=== PATIENT | female | born 1955 | race Caucasian/White ===

== ENCOUNTER 2017-01-16 22:29 | Observation (INO) | payer OTHER ==
[~2017-01-16] VITALS: Ht 165.1 cm; Wt 74.5 kg
[~2017-01-16 22:29] MED LIST: ALBU6.7H INH; ALPR0.5T99 PO; ASPI325T PO; DOXY100T PO; LEXA10TA PO; LISI-357 PO; LOVA10TA PO; OMEG1CAP53 PO; RANI150 PO; TESS200C PO
[2017-01-16] MEDS ORDERED: SODIUM CHLORIDE 0.9% FLUSH 5 ML FLUSH IVF PRN (22:45)
[2017-01-16] MEDS ORDERED: CYCL1TAB29 PO (23:12)
[2017-01-16] MEDS ORDERED: FENO200C PO (23:12)
[2017-01-16] MEDS ORDERED: BUTA1CAP PO (23:12)
[2017-01-16] MEDS ORDERED: KETO2CRE TOPICAL (23:12)
[2017-01-16] MEDS ORDERED: TRAM50TA PO (23:12)
[2017-01-16] MEDS ORDERED: CARV3.12 PO (23:12)
[2017-01-16] MEDS ORDERED: ONDA8TAB8 SL (23:12)
[2017-01-16] MEDS ORDERED: FLUT1INH INH (23:12)
[2017-01-16] MEDS ORDERED: ASPI325T PO (23:12)
[2017-01-16] MEDS ORDERED: ESCI10TA PO (23:12)
[2017-01-16] MEDS ORDERED: DIAZ5TAB PO (23:12)
[2017-01-16 23:31] VITALS: BP 188/81; PULSE 63; RESP 16; TEMP 97.8; O2SAT 98
[2017-01-16 23:32] LABS: AUTOMATED NEUTROPHIL # 4.2 TH/MM3 (1.8-7.7); BASOPHIL # 0.1 TH/MM3 (0-0.2); BASOPHIL % 0.7 % (0.0-2.0); CHLORIDE 107 MEQ/L (98-107); EOSINOPHIL # 0.2 TH/MM3 (0-0.4); EOSINOPHIL % 2.2 % (0.0-4.0); HEMATOCRIT 48.1 % (35.0-46.0); HEMO FLAGS DIFF FINAL; LYMPH % 40.7 % (9.0-44.0); LYMPHOCYTE # 3.4 TH/MM3 (1.0-4.8); MEAN CELL VOLUME 88.2 FL (80.0-100.0); MEAN CORPUSCULAR HEMOGLOBIN 29.6 PG (27.0-34.0); MEAN CORPUSCULAR HGB CONC 33.5 % (32.0-36.0); MONO % 5.3 % (0.0-8.0); NEUT % 51.1 % (16.0-70.0); PLATELET COUNT 248 TH/MM3 (150-450); POTASSIUM 3.9 MEQ/L (3.5-5.1); RED BLOOD COUNT 5.45 MIL/MM3 (4.00-5.30); RED CELL DISTRIBUTION WIDTH 13.3 % (11.6-17.2); SODIUM (NA) 143 MEQ/L (136-145); WHITE BLOOD COUNT 8.3 TH/MM3 (4.0-11.0)
[2017-01-16 23:36] LABS: ANION GAP 9 MEQ/L (5-15); BICARBONATE 26.7 MEQ/L (21.0-32.0); BLOOD UREA NITROGEN 12 MG/DL (7-18)
[2017-01-16 23:39] LABS: ALT (GPT) 27 U/L (10-53); AST (GOT) 25 U/L (15-37); GLOMERULAR FILTRATION RATE 66 ML/MIN (>89)
[2017-01-16 23:40] LABS: TOTAL BILIRUBIN ADULT 0.4 MG/DL (0.2-1.0)
[2017-01-16 23:41] LABS: ALKALINE PHOSPHATASE 57 U/L (45-117); CREATINE KINASE 314 U/L (26-192)
--- NOTE | 2017-01-16 23:43 | RADHPO ---
EXAM DATE/TIME: 01/16/2017 23:12 [facility] COMPARISON: No previous studies available for comparison. INDICATIONS : Altered mental status. RADIATION DOSE: 60.26 CTDIvol (mGy) MEDICAL HISTORY : Hypertension. Myocardial infarction. SURGICAL HISTORY : Coronary artery stent. ENCOUNTER: Initial ACUITY: 1 day PAIN SCALE: 0/10 LOCATION: cranial TECHNIQUE: Multiple contiguous axial images were obtained of the head. Using automated exposure control and adj ustment of the mA and/or kV according to patient size, radiation dose was kept as low as reasonably a chievable to obtain optimal diagnostic quality images. FINDINGS: CEREBRUM: The ventricles are normal for age. No evidence of midline shift, mass lesion, hemorrhage or acute in farction. Physiologic calcification in the basal ganglia bilaterally. No extra-axial fluid collecti ons are seen. POSTERIOR FOSSA: The cerebellum and brainstem are intact. The 4th ventricle is midline. The cerebellopontine angle i s unremarkable. EXTRACRANIAL: The visualized portion of the orbits is intact. SKULL: The calvaria is intact. No evidence of skull fracture. CONCLUSION: Negative noncontrast CT brain. Randy Lee MD on January 16, 2017 at 23:33 Board Certified Radiologist. This report was verified electronically.
--- NOTE | 2017-01-16 23:52 | PD ---
HPI . Altered mental status Chief Complaint: Altered Mental Status Time Seen by Provider: 22:43 Travel History International Travel<30 days: No Contact w/Intl Traveler<30days: No Traveled to known affect area: No History of Present Illness HPI Patient is brought in by her daughter with a chief complaint of altered mental status. This reportedly started tonight. The daughter has just moved to the area. She is not able to arrive to us with much more history than this. PFSH Past Medical History Hx Anticoagulant Therapy: Yes (ASA) Anxiety: Yes Cardiac Catheterization: Yes Cardiovascular Problems: Yes Coronary Artery Disease: Yes Diabetes: No Diminished Hearing: No Gastrointestinal Disorders: Yes Genitourinary: No Headaches: No Hypertension: Yes Musculoskeletal: No Neurologic: No Reproductive: No Respiratory: Yes Immunizations Current: Yes Myocardial Infarction: Yes (2008) PNEUMOCCOCAL Vaccine (Year): 2007 Menopausal: Yes Past Surgical History Abdominal Surgery: Yes (cholecystectomy) Cholecystectomy: Yes Coronary Stent: Yes (X2 07/2008) Other Surgery: Yes Social History Alcohol Use: No Tobacco Use: Yes (2pk/day) Substance Use: No Allergies-Medications (Allergen,Severity, Reaction): Coded Allergies: Blue Dyes - Various (Verified Allergy, Severe, Edema, 01/16/17) Cat Dander (Verified Allergy, Severe, FACIAL SWELLING, 01/16/17) Dog Dander (Verified Allergy, Severe, FACIAL SWELLING, 01/16/17) Keflex (Verified Allergy, Severe, HIVES, 01/16/17) Reported Meds & Prescriptions Reported Meds & Active Scripts Active Reported Aspirin 325 Mg Tab 325 Mg PO DAILY Ketoconazole Topical 2% Cream 1 Applic TOPICAL DAILY Breo Ellipta Inh (Fluticasone/Vilanterol) 100-25 Mcg/Act Inh 1 Puff INH DAILY Use daily at the same time. Fenofibrate Micronized 200 Mg Cap 200 Mg PO DAILY Fioricet (Efxeonkzfw-Rvinrnbcqlsmr-Fgiixlcm) 50-300-40 Mg Cap 1 Cap PO Q4H PRN Escitalopram (Escitalopram Oxalate) 10 Mg Tab 10 Mg PO DAILY Ondansetron Odt 8 Mg Tab 8 Mg SL Q12H PRN Flexeril (Cyclobenzaprine HCl) 10 Mg Tab 10 Mg PO TID Carvedilol 3.125 Mg Tab 3.125 Mg PO BID Diazepam 5 Mg Tab 5 Mg PO TID PRN Tramadol (Tramadol HCl) 50 Mg Tab 50 Mg PO Q6H PRN Review of Systems ROS Limitations: Altered Mental Status General / Constitutional: No: Fever, Chills HENT: Positive: Headaches Cardiovascular: No: Chest Pain or Discomfort Respiratory: No: Shortness of Breath Gastrointestinal: No: Nausea, Vomiting Neurologic: Positive: Headache, Change in Mentation, No: Focal Abnormalities, Slurred Speech, Paresthesia, Incontinence, Seizures Physical Exam Narrative GENERAL: Patient is confused and frightened appearing. SKIN: Warm and dry. HEAD: Atraumatic. Normocephalic. EYES: Pupils equal and round. Extraocular movements are intact. ENT: No nasal bleeding or discharge. Mucous membranes pink and moist. NECK: Trachea midline. Her neck is supple. CARDIOVASCULAR: Regular rate and rhythm. Heart sounds are normal. RESPIRATORY: No accessory muscle use. Lungs are clear with full air movement throughout. GASTROINTESTINAL: Abdomen soft, non-tender, nondistended. MUSCULOSKELETAL: No obvious deformities. No edema. NEUROLOGICAL: Awake and alert. She is able to tell me her name. She is unable to state her birthday, where she is, what day it is, who the president is. She moves all 4 extremities equally. She has good replenishment specialist strengths. No ataxia noted on qmztri-fycn-[id number] exam. PSYCHIATRIC: Unable to evaluate. Data Data Last Documented VS Vital Signs Date Time Temp Pulse Resp B/P Pulse Ox O2 Delivery O2 Flow Rate FiO2 01/17/17 03:48 64 18 96 Room Air 01/17/17 03:28 169/75 01/16/17 23:31 97.8 Orders Electrocardiogram (01/16/17 22:43) Ammonia (01/16/17 22:43) Complete Blood Count With Diff (01/16/17 22:43) Comprehensive Metabolic Panel (01/16/17 22:43) Creatine Kinase (Cpk) (01/16/17 22:43) Troponin I (01/16/17 22:43) Urinalysis - C+S If Indicated (01/16/17 22:43) Ct Brain W/O Iv Contrast(Rout) (01/16/17 22:43) Blood Glucose (01/16/17 22:43) Ecg Monitoring (01/16/17 22:43) Iv Access Insert/Monitor (01/16/17 22:43) Oximetry (01/16/17 22:43) Sodium Chloride 0.9% Flush (Ns Flush) (01/16/17 22:45) Drug Screen, Random Urine (01/16/17 22:43) Alcohol (Ethanol) (01/16/17 22:43) Cath For Specimen (01/16/17 22:43) CKMB (01/16/17 23:09) CKMB% (01/16/17 23:09) Place In Observation (01/17/17 ) Vital Signs (Adult) Q4H (01/17/17 03:54) Activity Oob With Assistance (01/17/17 03:54) Diet Regular Basic (01/17/17 Breakfast) Sodium Chlor 0.9% 1000 Ml Inj (Ns 1000 M (01/17/17 03:54) Sodium Chloride 0.9% Flush (Ns Flush) (01/17/17 04:00) Sodium Chloride 0.9% Flush (Ns Flush) (01/17/17 09:00) Ondansetron Inj (Zofran Inj) (01/17/17 04:00) Bisacodyl Supp (Dulcolax Supp) (01/17/17 04:00) Comprehensive Metabolic Panel (01/18/17 06:00) Complete Blood Count With Diff (01/18/17 06:00) Pt Request For Service (01/17/17 03:54) Case Management Consult (01/17/17 03:54) Scd Bilateral/Knee High JANELLE.BID (01/17/17 03:54) Ruperto Bilateral/Knee High JANELLE.QSHIFT (01/17/17 03:54) Acetaminophen (Tylenol) (01/17/17 04:00) Admit Order (Ed Use Only) (01/17/17 03:55) Labs Laboratory Tests Test 01/16/17 01/16/17 01/17/17 23:09 23:40 00:11 White Blood Count 8.3 TH/MM3 Red Blood Count 5.45 MIL/MM3 Hemoglobin 16.1 GM/DL Hematocrit 48.1 % Mean Corpuscular Volume 88.2 FL Mean Corpuscular Hemoglobin 29.6 PG Mean Corpuscular Hemoglobin 33.5 % Concent Red Cell Distribution Width 13.3 % Platelet Count 248 TH/MM3 Mean Platelet Volume 7.7 FL Neutrophils (%) (Auto) 51.1 % Lymphocytes (%) (Auto) 40.7 % Monocytes (%) (Auto) 5.3 % Eosinophils (%) (Auto) 2.2 % Basophils (%) (Auto) 0.7 % Neutrophils # (Auto) 4.2 TH/MM3 Lymphocytes # (Auto) 3.4 TH/MM3 Monocytes # (Auto) 0.4 TH/MM3 Eosinophils # (Auto) 0.2 TH/MM3 Basophils # (Auto) 0.1 TH/MM3 CBC Comment DIFF FINAL Differential Comment Sodium Level 143 MEQ/L Potassium Level 3.9 MEQ/L Chloride Level 107 MEQ/L Carbon Dioxide Level 26.7 MEQ/L Anion Gap 9 MEQ/L Blood Urea Nitrogen 12 MG/DL Creatinine 0.87 MG/DL Estimat Glomerular Filtration 66 ML/MIN Rate Random Glucose 106 MG/DL Calcium Level 8.7 MG/DL Total Bilirubin 0.4 MG/DL Aspartate Amino Transf 25 U/L (AST/SGOT) Alanine Aminotransferase 27 U/L (ALT/SGPT) Alkaline Phosphatase 57 U/L Total Creatine Kinase 314 U/L Creatine Kinase MB 2.8 NG/ML Creatine Kinase MB % 0.9 % Troponin I LESS THAN 0.02 NG/ML Total Protein 6.7 GM/DL Albumin 3.6 GM/DL Ethyl Alcohol Level LESS THAN 3 MG/DL Ammonia 17 MCMOL/L Urine Color STRAW Urine Turbidity CLEAR Urine pH 7.0 Urine Specific [place] 1.009 Urine Protein NEG mg/dL Urine Glucose (UA) NEG mg/dL Urine Ketones NEG mg/dL Urine Occult Blood NEG Urine Nitrite NEG Urine Bilirubin NEG Urine Leukocyte Esterase NEG Urine WBC 0-2 /hpf Urine Squamous Epithelial 0-5 /hpf Cells Microscopic Urinalysis Comment CULT NOT INDICATED Urine Opiates Screen NEG Urine Barbiturates Screen NEG Urine Amphetamines Screen NEG Urine Benzodiazepines Screen POS Urine Cocaine Screen NEG Urine Cannabinoids Screen NEG MDM Medical Decision Making Medical Screen Exam Complete: Yes Emergency Medical Condition: Yes Medical Record Reviewed: Yes (unfortunately, the patient has not been here in the recent past. She does have a history of hypertension and previous OK status post stent placement. She is a smoker.) Interpretation(s) EKG shows a sinus rhythm with no ST segment elevation or depression. Differential Diagnosis Differential diagnosis of altered mental status includes but is not limited to infection, electrolyte abnormality, neurological event, intoxication Narrative Course Patient presents to us for altered mental status. We are not able to give a very good history from the patient and family. CBC & BMP Diagram 01/16/17 23:09 Cardiac enzymes are negative. Liver function studies are normal. Ammonia level is 17. Drug screen is positive for benzodiazepines. Alcohol level is negative. UA is clean. Last Impressions Head CT 01/16/17 2243 Signed Impressions: Service Date/Time: Monday, January 16, 2017 23:12 - CONCLUSION: Negative noncontrast CT brain. Randy Lee MD Patient has been observed in the emergency department for a period of time. Her mental status has not cleared at all. She is able to tell us her name but that is all. She cannot tell us what sort of place this is. She does not know the day. She does not know her birthday. Critical Care Narrative Aggregate critical care time was 45 minutes. Time to perform other separately billable procedures was not included in the critical care time. My time did not include minutes spent treating any other patients simultaneously or on activities that did not directly contribute to the patient's treatment. The services I provided to this patient were to treat and/or prevent clinically significant deterioration due to altered mental status I provided critical care services requiring my management, as noted below: Chart data review, documentation time, medication orders and management, vital sign assessments/reviewing monitor data, ordering and reviewing lab tests, ordering and interpreting/reviewing x-rays and diagnostic studies, care of the patient and discussion of the patient with the admitting physicians Diagnosis Primary Impression: Altered mental status Qualified Code: R41.0 - Delirium Admitting Information Admitting Physician Requests: Admit Condition: Stable Neida Leos MD Jan 16, 2017 23:51
[2017-01-17] VITALS (13 sets, daily range): BP systolic 113–202; BP diastolic 52–88; PULSE 64–79; RESP 16–21; TEMP 97.8–99.7; O2SAT 95–98
[2017-01-17] LABS: CKMB 2.8 NG/ML (0.5-3.6)
[2017-01-17 00:39] LABS: BLOOD, URINE NEG (NEG); GLUCOSE,URINE NEG (NEG); KETONE, URINE NEG (NEG); NITRITE,URINE NEG (NEG)
[2017-01-17 00:47] LABS: AMPHETAMINE, URINE NEG (NEG); BARBITURATES, URINE NEG (NEG); COCAINE, URINE NEG (NEG)
[2017-01-17 01:03] LABS: URINE COLOR STRAW (YELLW/STRAW)
[2017-01-17 01:04] LABS: SQUAMOUS EPITHELIAL CELL URINE 0-5 /hpf (0-5); WBC, URINE 0-2 /hpf (0-5)
[2017-01-17 01:05] LABS: COMMENT (UR) CULT NOT INDICATED; CULTURE IF INDICATED CULT NOT INDICATED
[2017-01-17] MEDS ORDERED: BISACODYL 10 MG SUPP PR PRN (04:00)
[2017-01-17] MEDS ORDERED: SODIUM CHLORIDE 0.9% FLUSH 5 ML FLUSH FLUSH PRN (04:00)
[2017-01-17] MEDS ORDERED: ONDANSETRON HCL 4 MG/2 ML VIAL IVP PRN (04:00)
[2017-01-17] MEDS: SODIUM CHLOR 0.9% 1000 ML INJ 1,000 ML IV SCH ×2 (04:43→13:45)
[2017-01-17] MEDS: SODIUM CHLORIDE 0.9% FLUSH 5 ML FLUSH FLUSH SCH ×2 (08:52→21:00)
--- NOTE | 2017-01-17 10:15 | HHI.HP ---
HPI Service [facility] Hospitalists Primary Care Physician No Primary Care Physician Admission Diagnosis altered mental status Diagnoses: Chief Complaint: Altered mental status Travel History International Travel<30 Days: No Contact w/Intl Traveler <30 Da: No Traveled to Known Affected Are: No History of Present Illness This is a 61-year-old female with past medical history significant for coronary artery disease status post stent implant and COPD who presents to [facility] ED with altered mental status. Per ED staff, patient is less altered and is more aware of her surroundings, however she is still a very poor historian and unreliable with her responses. Her sister is at the bedside but was not present last night at the onset of patient's symptoms. Apparently, the patient was brought in by her granddaughter last night. Patient states that she began feeling poorly after taking her evening Coreg dose. When asked if the patient took any of her other medications, including Flexeril, diazepam and/ or tramadol she is unclear. She is alert and oriented to self, place and time. She informs me that she had cough and congestion due to pneumonia 2 weeks ago and was treated with antibiotics as an outpatient. She is dealing with a lot of stress at home and is not getting much sleep. In the ED, CT of the head is negative. She is hemodynamically stable. Her white count is normal. UA is unremarkable. Electrolytes are within normal limits. Her troponin is negative. Chest x-ray is unremarkable. At end of visit, patient stated that she is going home understanding that it would be AGAINST MEDICAL ADVICE but as she went to get up from the hospital she developed a sudden headache. Patient now agreeable to staying and complete her course of treatment. Review of Systems ROS Limitations: Altered Mental Status (able to answer some questions appropriately) Constitutional: DENIES: Fatigue, Fever, Chills Endocrine: DENIES: Polydipsia, Polyuria Eyes: DENIES: Blurred vision, Diplopia Ears, nose, mouth, throat: DENIES: Throat pain, Running Nose, Sinus Pain Respiratory: COMPLAINS OF: Cough (1-2 weeks ago, history of pneumonia, resolved ), Sputum production (1-2 weeks ago, resolved), DENIES: Hemoptysis, Shortness of breath Cardiovascular: DENIES: Chest pain, Palpitations, Syncope, Lower Extremity Edema Gastrointestinal: DENIES: Abdominal pain, Black stools, Bloody stools, Diarrhea , Nausea, Vomiting Genitourinary: DENIES: Hematuria, Dysuria Musculoskeletal: DENIES: Muscle aches, Joint Swelling, Back pain, Neck pain Integumentary: DENIES: Pruritus, Rash Hematologic/lymphatic: DENIES: Lymphadenopathy Immunologic/allergic: DENIES: Urticaria Neurologic: COMPLAINS OF: Speech Problems (some slurred speech 1 day), DENIES : Headache, Localized weakness, Paresthesias Psychiatric: DENIES: Confusion, Mood changes, Depression Past Family Social History Past Medical History COPD Coronary artery disease, previous NSTEMI 2007 Hypertension Anxiety Dyslipidemia Recent community-acquired pneumonia, treated successfully as outpatient Past Surgical History Cardiac stents, 2009 Cholecystectomy Reported Medications Aspirin 325 Mg Tab 325 Mg PO DAILY Ketoconazole Topical 2% Cream 1 Applic TOPICAL DAILY Breo Ellipta Inh (Fluticasone/Vilanterol) 100-25 Mcg/Act Inh 1 Puff INH DAILY Use daily at the same time. Fenofibrate Micronized 200 Mg Cap 200 Mg PO DAILY Fioricet (Wbwymopnki-Wuszlkwjgswzd-Giiziqge) 50-300-40 Mg Cap 1 Cap PO Q4H PRN Escitalopram (Escitalopram Oxalate) 10 Mg Tab 10 Mg PO DAILY Ondansetron Odt 8 Mg Tab 8 Mg SL Q12H PRN Flexeril (Cyclobenzaprine HCl) 10 Mg Tab 10 Mg PO TID Carvedilol 3.125 Mg Tab 3.125 Mg PO BID Diazepam 5 Mg Tab 5 Mg PO TID PRN Tramadol (Tramadol HCl) 50 Mg Tab 50 Mg PO Q6H PRN Allergies: Coded Allergies: Blue Dyes - Various (Verified Allergy, Severe, Edema, 01/16/17) Cat Dander (Verified Allergy, Severe, FACIAL SWELLING, 01/16/17) Dog Dander (Verified Allergy, Severe, FACIAL SWELLING, 01/16/17) Keflex (Verified Allergy, Severe, HIVES, 01/16/17) Active Ordered Medications Current Medications Medications (Trade) Dose Ordered Sig/Lo Route Start Time Stop Time Status Last Admin IV Flush 2 ml 2 ml UNSCH PRN IVF 01/16/17 22:45 (NS 1000 ml Inj) 1,000 ml @ 100 mls/hr Q10H IV 01/17/17 03:54 01/17/17 04:43 (NS Flush) 2 ml UNSCH PRN FLUSH 01/17/17 04:00 (NS Flush) 2 ml BID FLUSH 01/17/17 09:00 (Zofran Inj) 4 mg Q6H PRN IVP 01/17/17 04:00 (Dulcolax Supp) 10 mg DAILY PRN WI 01/17/17 04:00 (Tylenol) 650 mg Q6H PRN PO 01/17/17 04:00 Family History She denies any significant family medical history Social History Patient admits to heavy tobacco use of 2-3 packs per day and has been smoking since her early 20s Occasional alcohol use Denies any illicit drug use She is Lives with her and granddaughter Physical Exam Vital Signs Vital Signs Date Time Temp Pulse Resp B/P Pulse Ox O2 Delivery O2 Flow Rate FiO2 01/17/17 09:14 71 18 156/72 97 Room Air 01/17/17 06:11 71 16 95 Room Air 01/17/17 06:09 72 18 165/71 95 Room Air 01/17/17 04:46 79 20 202/74 97 Room Air 01/17/17 03:48 64 18 96 Room Air 01/17/17 03:28 64 18 169/75 96 Room Air 01/17/17 01:47 18 96 Room Air 01/17/17 01:28 76 18 152/66 97 Room Air 01/17/17 00:28 66 18 191/88 97 Room Air 01/16/17 23:47 63 16 98 Room Air 01/16/17 23:31 97.8 63 16 188/81 98 Physical Exam GENERAL: This is a well-nourished, well-developed patient, in no apparent distress. She is sleeping but easily arousable. SKIN: No rashes, ecchymoses or lesions. Warm and dry. HEAD: Atraumatic. Normocephalic. No temporal or scalp tenderness. EYES: Pupils equal round and reactive. Extraocular motions intact. No scleral icterus. No injection or drainage. ENT: Nose without bleeding, purulent drainage or septal hematoma. Throat without erythema, tonsillar hypertrophy or exudate. Uvula midline. Airway patent. NECK: Trachea midline. No lymphadenopathy. Supple, nontender, no meningeal signs. CARDIOVASCULAR: Regular rate and rhythm without murmurs, gallops, or rubs. RESPIRATORY: Clear to auscultation but poor effort noted. Breath sounds equal bilaterally. No wheezes, rales, or rhonchi. GASTROINTESTINAL: Abdomen soft, non-tender, nondistended. No hepato-splenomegaly , or palpable masses. No guarding. MUSCULOSKELETAL: Extremities without clubbing, cyanosis, or edema. No joint tenderness, effusion, or edema noted. No calf tenderness. NEUROLOGICAL: Awake and alert. Cranial nerves II through XII intact. Motor and sensory grossly within normal limits. Five out of 5 muscle strength in all muscle groups. Normal speech. Laboratory Laboratory Tests Test 01/16/17 01/16/17 01/17/17 23:09 23:40 00:11 White Blood Count 8.3 Red Blood Count 5.45 Hemoglobin 16.1 Hematocrit 48.1 Mean Corpuscular Volume 88.2 Mean Corpuscular Hemoglobin 29.6 Mean Corpuscular Hemoglobin 33.5 Concent Red Cell Distribution Width 13.3 Platelet Count 248 Mean Platelet Volume 7.7 Neutrophils (%) (Auto) 51.1 Lymphocytes (%) (Auto) 40.7 Monocytes (%) (Auto) 5.3 Eosinophils (%) (Auto) 2.2 Basophils (%) (Auto) 0.7 Neutrophils # (Auto) 4.2 Lymphocytes # (Auto) 3.4 Monocytes # (Auto) 0.4 Eosinophils # (Auto) 0.2 Basophils # (Auto) 0.1 CBC Comment DIFF FINAL Differential Comment Sodium Level 143 Potassium Level 3.9 Chloride Level 107 Carbon Dioxide Level 26.7 Anion Gap 9 Blood Urea Nitrogen 12 Creatinine 0.87 Estimat Glomerular Filtration 66 Rate Random Glucose 106 Calcium Level 8.7 Total Bilirubin 0.4 Aspartate Amino Transf 25 (AST/SGOT) Alanine Aminotransferase 27 (ALT/SGPT) Alkaline Phosphatase 57 Total Creatine Kinase 314 Creatine Kinase MB 2.8 Creatine Kinase MB % 0.9 Troponin I LESS THAN 0.02 Total Protein 6.7 Albumin 3.6 Ethyl Alcohol Level LESS THAN 3 Ammonia 17 Urine Color STRAW Urine Turbidity CLEAR Urine pH 7.0 Urine Specific [place] 1.009 Urine Protein NEG Urine Glucose (UA) NEG Urine Ketones NEG Urine Occult Blood NEG Urine Nitrite NEG Urine Bilirubin NEG Urine Leukocyte Esterase NEG Urine WBC 0-2 Urine Squamous Epithelial 0-5 Cells Microscopic Urinalysis Comment CULT NOT INDICATED Urine Opiates Screen NEG Urine Barbiturates Screen NEG Urine Amphetamines Screen NEG Urine Benzodiazepines Screen POS Urine Cocaine Screen NEG Urine Cannabinoids Screen NEG Result Diagram: 01/16/17 23001/[id number]/172308 Imaging Last [address] 01/16/172242 Signed Impressions: Service Date/Time: Monday, January 16, 2017 23:12 - CONCLUSION: Negative noncontrast CT brain. Randy Lee MD Last [address] 01/16/172242 Signed Impressions: Service Date/Time: Monday, January 16, 2017 23:12 - CONCLUSION: Negative noncontrast CT brain. Randy Lee MD Assessment and Plan Assessment and Plan 61-year-old female with past medical history significant for coronary artery disease status post stent implant and COPD who presents to [facility] ED with altered mental status. Altered mental status - Admitted to observation - Improved - Uncertain etiology, oversedation from medication use versus dehydration - Urine tox screen positive for benzodiazepines only - No source of infection appreciated - Chest x-ray personally reviewed and shows no acute cardiopulmonary process - Hold home Flexeril, diazepam and tramadol - Blood glucose monitoring - IV fluids - fall/aspiration precautions - PT eval/tx Hypertension - Resume home Coreg - Monitor BP COPD and ongoing tobacco use - Discussed briefly with patient importance of smoking cessation will attempt cessation counseling when patient more alert - Duonebs prn - Resume home Breo Headache - Tylenol when necessary - Monitor response DVT prophylaxis - SCD/ALVERTO hose Written by Padmini Ceja PA-C acting as scribe for Dr. Phan on 01/17/17 at 14:18. Attending Statement The exam, history, and the medical decision-making described in the above note were completed with my assistance as the dictating practitioner. I attest that I had a [id number] encounter with the patient on the same day, and personally performed all of the history, exam, or medical decision making. I reviewed and agree with the plan. Patient seen with sister who reports patient back to baseline. Patient also reports she was confused and not feeling well but appears to be back to her baseline. There is no focal deficit at this time. CT of the head unremarkable for acute cranial injury. Patient appears to have been dehydrated and possibly unintentionally overdosed on her home prescriptions. At this point patient will continue with observation and rehydration reassess. Padmini Ceja Jan 17, 2017 10:15 Alexus Phan MD Jan 17, 2017 17:36
[2017-01-17] MEDS ORDERED: RESP: ALBUTEROL 2.5 MG/IPRATROPIUM 0.5 MG NEB (PRN) NEB (10:45)
--- NOTE | 2017-01-17 10:49 | RADHPO ---
EXAM DATE/TIME: 01/17/2017 10:31 [facility] COMPARISON: No previous studies available for comparison. INDICATIONS : pneumonia MEDICAL HISTORY : None. SURGICAL HISTORY : None. ENCOUNTER: Initial ACUITY: 1 day PAIN SCORE: Non-responsive. LOCATION: Bilateral chest FINDINGS: PA and lateral views of the chest demonstrate the lungs to be symmetrically aerated without evidence of mass, infiltrate or effusion. The cardiomediastinal contours are unremarkable. Osseous structure s are intact. CONCLUSION: Normal examination. Jairon Santiago MD on January 17, 2017 at 10:47 Board Certified Radiologist. This report was verified electronically.
[2017-01-17] MEDS: CARVEDILOL 3.125 MG TAB PO SCH ×2 (11:10→21:00)
[2017-01-17] MEDS: ACETAMINOPHEN 325 MG TAB PO PRN (17:54)
--- NOTE | 2017-01-17 21:31 | EKG ---
Date Performed: 01/16/2017 Time Performed: 22:48:18 PTAGE: 61 years EKG: Sinus rhythm with PAC(s). Inferior T wave changes are nonspecific Compared to prior tracing no significant change Borderline ECG PREVIOUS TRACING : 09/09/2009 23.40 DOCTOR: Raghavendra Ocampo Interpretating Date/Time 01/17/2017 21:30:21
[2017-01-18] MEDS: SODIUM CHLOR 0.9% 1000 ML INJ 1,000 ML IV SCH (00:26)
[2017-01-18 04:18] VITALS: BP 148/67; PULSE 70; RESP 18; TEMP 98.8; O2SAT 98
[2017-01-18 05:04] LABS: AUTOMATED NEUTROPHIL # 3.6 TH/MM3 (1.8-7.7); BASOPHIL # 0.1 TH/MM3 (0-0.2); BASOPHIL % 0.7 % (0.0-2.0); EOSINOPHIL # 0.1 TH/MM3 (0-0.4); EOSINOPHIL % 1.1 % (0.0-4.0); HEMATOCRIT 41.8 % (35.0-46.0); HEMO FLAGS DIFF FINAL; LYMPH % 41.7 % (9.0-44.0); MEAN CELL VOLUME 88.9 FL (80.0-100.0); MEAN CORPUSCULAR HEMOGLOBIN 30.1 PG (27.0-34.0); MEAN CORPUSCULAR HGB CONC 33.8 % (32.0-36.0); MONO % 5.9 % (0.0-8.0); NEUT % 50.6 % (16.0-70.0); PLATELET COUNT 177 TH/MM3 (150-450); RED CELL DISTRIBUTION WIDTH 13.9 % (11.6-17.2); WHITE BLOOD COUNT 7.2 TH/MM3 (4.0-11.0)
[2017-01-18 05:36] LABS: ALT (GPT) 17 U/L (10-53); ANION GAP 9 MEQ/L (5-15); AST (GOT) 14 U/L (15-37); BICARBONATE 22.6 MEQ/L (21.0-32.0); BLOOD UREA NITROGEN 9 MG/DL (7-18); CHLORIDE 111 MEQ/L (98-107); GLOMERULAR FILTRATION RATE 72 ML/MIN (>89); POTASSIUM 3.6 MEQ/L (3.5-5.1); SODIUM (NA) 143 MEQ/L (136-145)
[2017-01-18 05:38] LABS: ALKALINE PHOSPHATASE 47 U/L (45-117); TOTAL BILIRUBIN ADULT 0.6 MG/DL (0.2-1.0)
[2017-01-18 07:27] VITALS: BP 161/77; PULSE 62; RESP 18; TEMP 98.3; O2SAT 95
[2017-01-18] MEDS: ACETAMINOPHEN 325 MG TAB PO PRN (07:38)
[2017-01-18] MEDS: CARVEDILOL 3.125 MG TAB PO SCH (08:35)
[2017-01-18] MEDS: SODIUM CHLORIDE 0.9% FLUSH 5 ML FLUSH FLUSH SCH (08:36)
[2017-01-18] MEDS ORDERED: KETOCONAZOLE 2% CREAM 15 GM TOPICAL SCH (09:00)
[2017-01-18] MEDS ORDERED: FLUTICASONE 100 MCG/VILANTEROL 25 MCG INHALER INH SCH (09:00)
[2017-01-18] MEDS ORDERED: ASPIRIN 325 MG TAB PO SCH (09:00)
[2017-01-18] MEDS ORDERED: ENALAPRILAT 1.25 MG/ML VIAL IV PRN (09:15)
[2017-01-18] MEDS ORDERED: cloNIDine HCL 0.1 MG TAB PO PRN (09:15)
--- NOTE | 2017-01-18 09:39 | HHI.PR ---
Subjective Remarks Follow up for AMS. The patient is currently awake, alert, oriented x4. The patient feels back to normal. The patient now believes she took her medications (which included her BP med and muscle relaxer) twice yesterday morning. She remembers possibly taking them in the bathroom and then again in the kitchen. She denies any suicidal ideations. Today she has no medical complaints and wants to go home. On exam, patient noted to have oral thrush, she was recently on prednisone and azithromycin for pneumonia. Objective Vitals Vital Signs Date Time Temp Pulse Resp B/P Pulse Ox O2 Delivery O2 Flow Rate FiO2 01/18/17 07:27 98.3 62 18 161/77 95 01/18/17 04:18 98.8 70 18 148/67 98 01/17/17 23:56 98.8 66 18 124/52 98 01/17/17 20:00 97.8 78 21 130/68 98 01/17/17 19:09 98.8 78 21 113/55 98 01/17/17 16:43 99.7 73 20 137/67 95 01/17/17 14:17 66 16 132/66 95 Room Air 01/17/17 10:58 98.0 71 18 157/78 97 Room Air I/O 01/17/17 01/17/17 01/17/17 01/18/17 01/18/17 01/18/17 07:00 15:00 23:00 07:00 15:00 23:00 Intake Total 155 ml 240 ml 120 ml 1154 ml Output Total 430 ml 900 ml Balance -275 ml -660 ml 120 ml 1154 ml Intake Oral 240 ml 120 ml IV Total 155 ml 1154 ml Output Urine Total 400 ml 900 ml Emesis 30 ml # Voids 2 1 Result Diagram: 01/18/17 0416 01/18/17 0416 Imaging Last Impressions Head CT 01/16/17 2243 Signed Impressions: Service Date/Time: Monday, January 16, 2017 23:12 - CONCLUSION: Negative noncontrast CT brain. Randy Lee MD Objective Remarks GENERAL: Well-nourished, well-developed middle aged female patient in [facility]. SKIN: Warm and dry. No rash. HEAD: Normocephalic. Atraumatic. EYES: Pupils equal and round. No scleral icterus. No injection or drainage. ENT: No nasal bleeding or discharge. Mucous membranes pink and moist. Tongue and oropharynx with white patchy exudate consistent with oral thrush. NECK: Supple. Trachea midline. CARDIOVASCULAR: Regular rate and rhythm. S1, S2 noted. No murmur appreciated. RESPIRATORY: No accessory muscle use. Clear to auscultation. Breath sounds equal bilaterally. GASTROINTESTINAL: Abdomen soft, non-tender, nondistended. Normoactive bowel sounds x4. MUSCULOSKELETAL: No obvious deformities. Extremities without clubbing, cyanosis , or edema. NEUROLOGICAL: Awake and alert. No obvious cranial nerve deficits. Motor grossly within normal limits. 5/5 muscle strength in bilateral upper and lower extremities. Normal speech. PSYCHIATRIC: Appropriate mood and affect; insight and judgment normal. Medications and IVs Current Medications Medications (Trade) Dose Ordered Sig/Lo Route Start Time Stop Time Status Last Admin (NS Flush) 2 ml UNSCH PRN FLUSH 01/17/17 04:00 (NS Flush) 2 ml BID FLUSH 01/17/17 09:00 (Zofran Inj) 4 mg Q6H PRN IVP 01/17/17 04:00 01/17/17 11:57 (Dulcolax Supp) 10 mg DAILY PRN LA 01/17/17 04:00 (Tylenol) 650 mg Q6H PRN PO 01/17/17 04:00 01/18/17 07:38 (Aspirin) 325 mg DAILY PO 01/18/17 09:00 01/18/17 08:35 (Coreg) 3.125 mg BID PO 01/17/17 11:00 01/18/17 08:35 (Breo Ellipta 100-25 Inh) 1 puff DAILY INH 01/18/17 09:00 01/18/17 08:35 (Nizoral 2% Cream) 1 applic DAILY TOPICAL 01/18/17 09:00 (Vasotec Inj) 1.25 mg Q6H PRN IV 01/18/17 09:15 (Catapres) 0.1 mg Q6H PRN PO 01/18/17 09:15 Urinary Catheter: No Vascular Central Line Catheter: No A/P Assessment and Plan 61-year-old female with past medical history significant for coronary artery disease status post stent implant and COPD who presents to [facility] ED with altered mental status. Toxic/Metabolic Encephalopathy: suspect secondary to accidental overmedication, admits to accidentally taking BP med and Flexeril twice, no suicidal ideations - Now back to baseline, AAOx4 - Urine tox screen positive for benzodiazepines only - No source of infection appreciated - CXR personally reviewed and shows no acute cardiopulmonary process - Held home Flexeril, diazepam and tramadol; counseled on sedating medication use - Blood glucose monitoring - S/p IV fluids - fall/aspiration precautions - Patient back to baseline, ambulating without difficulty, stable for discharge. Hypertension - Resume home Coreg - Monitor BP COPD and ongoing tobacco use - Discussed importance of smoking cessation - Duonebs prn - Resume home Breo Headache - Tylenol when necessary - Monitor response, resolved Oral Candiasis - likely secondary to recent abx/steroid use - start on Nystatin SS qid [id number], give prescription at discharge DVT prophylaxis - SCD/ALVERTO [email or web address] Written by Caroline Rm, acting as scribe for Dr. Nelson on 01/18/17 at 09: 38. All or portions of this note were transcribed by scribe []. I, Dr. Forest Nelson personally performed the history, physical exam, and medical decision making; and confirmed the accuracy of the information in the transcribed note. Authenticated by Dr. Forest Nelson on 01/18/17 at 16:57. Discharge Planning Discharge patient to home Condition on discharge: Improved Heart Healthy Diet as tolerated Ad Precious activity Rx written: Nystatin SS qid [id number] Follow-up with primary care physician within 1 week Caroline Rm PA-C Jan 18, 2017 09:39 Forest Nelson MD Jan 18, 2017 16:57
[2017-01-18] MEDS ORDERED: NYST1000 SWISH-SWAL (09:40)
--- NOTE | 2017-01-18 09:42 | HHI.DCPOC ---
Discharge Care Plan Diagnosis: (1) Overuse of medication (2) Altered mental status Goals to Promote Your Health * To prevent worsening of your condition and complications * To maintain your health at the optimal level Directions to Meet Your Goals Take your medications as prescribed Follow your dietary instruction Follow activity as directed Keep your appointments as scheduled Take your immunizations and boosters as scheduled If your symptoms worsen call your PCP, if no PCP go to Urgent Care Center or Emergency Room Smoking is Dangerous to Your Health. Avoid second hand smoke Call the 24-hour hour crisis hotline for domestic abuse at Caroline Rm PA-C Jan 18, 2017 9:41 am
== END 2017-01-18 11:30 | disposition home or self-care (01) ==
LOC: PHED 22:29 → PHEDA 01-17 03:56 → PHEDH 01-17 08:29 → NEPFCDU 01-17 16:18
PROVIDERS: ADMIT Internal Medicine; ATTEND Internal Medicine
DX: G92 Toxic encephalopathy (principal); T48.1X1A Poisoning by skeletal muscle relaxants [neuromuscular blocking agents], accidental (unintentional), initial encounter; R51 Headache; B37.0 Candidal stomatitis; I25.10 Atherosclerotic heart disease of native coronary artery without angina pectoris; J44.9 Chronic obstructive pulmonary disease, unspecified; I25.2 Old myocardial infarction; I10 Essential (primary) hypertension; F17.200 Nicotine dependence, unspecified, uncomplicated; F41.9 Anxiety disorder, unspecified; E78.5 Hyperlipidemia, unspecified; Z87.01 Personal history of pneumonia (recurrent); Z79.82 Long term (current) use of aspirin; Z88.8 Allergy status to other drugs, medicaments and biological substances; Z91.041 Radiographic dye allergy status; Z95.5 Presence of coronary angioplasty implant and graft
CPT/HCPCS: 70450; 71020; 80053; 80307; 81001; 82140; 82550; 82552; 82948; 84484; 85025; 93005; 96125; 97110; 97116; 97161; 99291; G0378; G8987; G8988; G9168; G9169; G9170; J2405; J7030

== ENCOUNTER 2017-12-21 16:53 | Inpatient (IN) | payer OTHER ==
[2017-12-21] VITALS (12 sets, daily range): BP systolic 125–177; BP diastolic 63–79; PULSE 87–111; RESP 18–26; TEMP 98.4–101.5; O2SAT 82–96
[~2017-12-21] VITALS: Ht 167.6 cm; Wt 71.0 kg
[~2017-12-21 16:53] MED LIST changes: -ALBU6.7H INH; -ALPR0.5T99 PO; +ASPI-183 PO; -ASPI325T PO; +BUTA1CAP PO; +CARV3.12 PO; +DIAZ5TAB PO; -DOXY100T PO; +FENO200C PO; +FLUT1INH INH; +KETO2CRE TOPICAL; -LEXA10TA PO; -LISI-357 PO; -LOVA10TA PO; +NYST1000 SWISH-SWAL; -OMEG1CAP53 PO; +ONDA8TAB8 SL; -RANI150 PO; -TESS200C PO; +TRAM50TA PO
--- NOTE | 2017-12-21 17:18 | PD ---
HPI Chief Complaint: Shortness of breath, cough Time Seen by Provider: 17:09 Travel History International Travel<30 days: No Contact w/Intl Traveler<30days: No History of Present Illness HPI Patient is a 61-year-old female history of COPD with 2 pack per day smoking history presents emergency department with cough shortness of breath for the past few days. patient initially had a saturation of 82% on room air, she is not on home oxygen. Endorses cough production of yellow sputum, fevers at home , she has not tried anything to relieve her symptoms at home, general malaise and just not feeling well. Symptoms gradually worsening over the past few days , context as above, severity as above PFSH Past Medical History Hx Anticoagulant Therapy: Yes (ASA) Asthma: No Blood Disorders: No Anxiety: Yes Heart Rhythm Problems: No Cancer: No Cardiac Catheterization: Yes Cardiovascular Problems: No High Cholesterol: Yes Chemotherapy: No Chest Pain: Yes (Suffered from chest pain in the past) Congestive Heart Failure: No COPD: No Coronary Artery Disease: Yes Diabetes: No Diminished Hearing: No Endocrine: No Gastrointestinal Disorders: Yes Genitourinary: No Headaches: No Hypertension: Yes Immune Disorder: No Musculoskeletal: Yes (Previous back and neck injury) Neurologic: No Psychiatric: No Reproductive: No Respiratory: No (Patient diagnosed with pneumonia few weeks ago) Immunizations Current: Yes Myocardial Infarction: Yes (2008) Radiation Therapy: No Sleep Apnea: No Thyroid Disease: No PNEUMOCCOCAL Vaccine (Year): 2007 Menopausal: Yes Past Surgical History Abdominal Surgery: Yes (cholecystectomy) Cholecystectomy: Yes Coronary Stent: Yes (X2 07/2008) Other Surgery: Yes Social History Alcohol Use: No Tobacco Use: Yes (2pk/day) Substance Use: No Allergies-Medications (Allergen,Severity, Reaction): Coded Allergies: blue dye (Unverified Allergy, Severe, Edema, 12/21/17) cat dander (Unverified Allergy, Severe, FACIAL SWELLING, 12/21/17) cephalexin (Unverified Allergy, Severe, HIVES, 12/21/17) dog dander (Unverified Allergy, Severe, FACIAL SWELLING, 12/21/17) Reported Meds & Prescriptions Reported Meds & Active Scripts Active Reported Aspirin 325 Mg Tab 325 Mg PO DAILY Breo Ellipta Inh (Fluticasone/Vilanterol) 100-25 Mcg/Act Inh 1 Puff INH DAILY Use daily at the same time. Fenofibrate Micronized 200 Mg Cap 200 Mg PO DAILY Carvedilol 3.125 Mg Tab 3.125 Mg PO BID Diazepam 5 Mg Tab 5 Mg PO TID PRN Review of Systems Except as stated in HPI: all other systems reviewed are Neg Physical Exam Narrative GENERAL: Well-developed, ill appearance, well-nourished SKIN: Focused skin assessment warm/dry. HEAD: Atraumatic. Normocephalic. EYES: Pupils equal and round. No scleral icterus. No injection or drainage. ENT: No nasal bleeding or discharge. Mucous membranes pink and moist. NECK: Trachea midline. No JVD. CARDIOVASCULAR: Tachycardic with regular rhythm. No murmur appreciated. RESPIRATORY: No accessory muscle use. Bibasilar wheezing, no rales no rhonchi, tachypneic but no accessory muscle use.. Breath sounds equal bilaterally. GASTROINTESTINAL: Abdomen soft, non-tender, nondistended. Hepatic and splenic margins not palpable. MUSCULOSKELETAL: No obvious deformities. No clubbing. No cyanosis. No edema. NEUROLOGICAL: Awake and alert. No obvious cranial nerve deficits. Motor grossly within normal limits. Normal speech. PSYCHIATRIC: Appropriate mood and affect; insight and judgment normal. Data Data Last Documented VS Vital Signs Date Time Temp Pulse Resp B/P (MAP) Pulse Ox O2 Delivery O2 Flow Rate FiO2 12/21/17 18:55 101.5 111 24 163/68 (99) 94 Nasal Cannula 3.00 Orders Orders Sepsis Workup Initiated (12/21/17 ) Electrocardiogram (12/21/17 17:16) Complete Blood Count With Diff (12/21/17 17:16) Comprehensive Metabolic Panel (12/21/17 17:16) Prothrombin Time / Inr (Pt) (12/21/17 17:16) Act Partial Throm Time (Ptt) (12/21/17 17:16) Lactic Acid Sepsis Protocol (12/21/17 17:16) Magnesium (Mg) (12/21/17 17:16) Phosphorus (Po4) (12/21/17 17:16) Lipase (12/21/17 17:16) Ckmb (Isoenzyme) Profile (12/21/17 17:16) Troponin I (12/21/17 17:16) Urinalysis - C+S If Indicated (12/21/17 17:16) Blood Culture (12/21/17 17:16) Chest, Single Ap (12/21/17 17:16) Blood Glucose (12/21/17 17:16) Ecg Monitoring (12/21/17 17:16) Iv Access Insert/Monitor (12/21/17 17:16) Oximetry (12/21/17 17:16) Oxygen Administration (12/21/17 17:16) Albuterol-Ipratropium Neb (Duoneb Neb) (12/21/17 17:30) Sodium Chlor 0.9% 1000 Ml Inj (Ns 1000 M (12/21/17 17:30) Blood Gas Venous (Vbg) (12/21/17 17:16) Influenzae A/B Antigen (12/21/17 18:02) CKMB (12/21/17 17:30) CKMB% (12/21/17 17:30) Acetaminophen (Tylenol) (12/21/17 19:15) Levofloxacin 750 Mg Premix Inj (Levaquin (12/21/17 19:15) Admit Order (Ed Use Only) (12/21/17 ) Prednisone (Deltasone) (12/21/17 19:45) Labs Laboratory Tests Test 12/21/17 17:25 12/21/17 17:30 12/21/17 19:40 Blood Gas Puncture Site RARM Blood Gas Patient Temperature 98.6 Venous Blood pH 7.34 Venous Blood Partial Pressure CO2 47 mmHg Venous Blood Partial Pressure O2 49 mmHg Venous Blood HCO3 25 mmol/L Venous Blood Oxygen Saturation 80 % Venous Blood Oxygen Content 19.1 Vol % Venous Blood Base Excess -0.3 mmol/L Oxygen Delivery Device NASAL CANNULA Blood Gas Liter Flow 3 L/M White Blood Count 7.7 TH/MM3 Red Blood Count 5.47 MIL/MM3 Hemoglobin 16.0 GM/DL Hematocrit 47.1 % Mean Corpuscular Volume 86.0 FL Mean Corpuscular Hemoglobin 29.2 PG Mean Corpuscular Hemoglobin Concent 33.9 % Red Cell Distribution Width 12.9 % Platelet Count 188 TH/MM3 Mean Platelet Volume 7.8 FL Neutrophils (%) (Auto) 76.8 % Lymphocytes (%) (Auto) 13.5 % Monocytes (%) (Auto) 7.0 % Eosinophils (%) (Auto) 0.0 % Basophils (%) (Auto) 2.7 % Neutrophils # (Auto) 6.0 TH/MM3 Lymphocytes # (Auto) 1.0 TH/MM3 Monocytes # (Auto) 0.5 TH/MM3 Eosinophils # (Auto) 0.0 TH/MM3 Basophils # (Auto) 0.2 TH/MM3 CBC Comment DIFF FINAL Differential Comment Prothrombin Time 10.9 SEC Prothromb Time International Ratio 1.1 RATIO Activated Partial Thromboplast Time 36.8 SEC Blood Urea Nitrogen 12 MG/DL Creatinine 0.75 MG/DL Random Glucose 117 MG/DL Total Protein 7.8 GM/DL Albumin 3.7 GM/DL Calcium Level 8.5 MG/DL Phosphorus Level 3.5 MG/DL Magnesium Level 2.0 MG/DL Alkaline Phosphatase 91 U/L Aspartate Amino Transf (AST/SGOT) 34 U/L Alanine Aminotransferase (ALT/SGPT) 25 U/L Total Bilirubin 0.4 MG/DL Sodium Level 134 MEQ/L Potassium Level 3.7 MEQ/L Chloride Level 102 MEQ/L Carbon Dioxide Level 24.1 MEQ/L Anion Gap 8 MEQ/L Estimat Glomerular Filtration Rate 78 ML/MIN Lactic Acid Level 0.7 mmol/L Total Creatine Kinase 449 U/L Creatine Kinase MB 3.6 NG/ML Creatine Kinase MB % 0.8 % Troponin I 0.02 NG/ML Lipase 125 U/L Urine Color YELLOW Urine Turbidity CLEAR Urine pH 5.5 Urine Specific [place] 1.016 Urine Protein 30 mg/dL Urine Glucose (UA) NEG mg/dL Urine Ketones 15 mg/dL Urine Occult Blood TRACE Urine Nitrite NEG Urine Bilirubin NEG Urine Leukocyte Esterase NEG Urine Squamous Epithelial Cells 0-5 /hpf Urine Amorphous Sediment SMALL Urine Hyaline Casts 0-2 /lpf Urine Fine Granular Casts 3-5 /lpf Urine Mucus OCC /lpf Microscopic Urinalysis Comment CULT NOT INDICATED MDM Medical Decision Making Medical Screen Exam Complete: Yes Emergency Medical Condition: Yes Differential Diagnosis Sirs, pneumonia, COPD exacerbation, hypoxic respiratory failure, hypercapnic respiratory failure, influenza P Narrative Course Patient room to the emergency department, initially hypoxic on room air to 82%, she was roomed emergently, placed on nasal cannula and seems to be tolerating it quite well, chest x-ray negative, influenza testing negative, labs fairly unremarkable except for a mild elevation of hemoglobin, lactic acid normal negating the need for aggressive fluid resuscitation. DuoNeb treatment was given in the emergency department and the patient had some response. On my reassessment, the patient is sleeping and appears to be in no obvious respiratory distress, her saturations been hovering in 90-93 region on 2 L nasal cannula, ABG reviewed and shows chronic hypercapnia. Ultimately I recommended admission for this patient who had low oxygen saturations on presentation is still tachypneic in the emergency department. She is given steroids, will cover with Levaquin for possible occult pneumonia. PE was briefly considered but the patient has not had any stasis and has no sign symptoms consistent with DVT. At this time the patient was discussed with Dr. [place] for admission and she is agreeable. Diagnosis Primary Impression: Acute respiratory failure with hypoxia Additional Impressions: Fever SIRS (systemic inflammatory response syndrome) Admitting Information Admitting Physician Requests: Admit Condition: Stable Isauro Copeland MD Dec 21, 2017 17:18
[2017-12-21] MEDS ORDERED: RESP: ALBUTEROL 2.5 MG/IPRATROPIUM 0.5 MG NEB (SCH) NEB ONE (17:30)
[2017-12-21] MEDS ORDERED: SODIUM CHLOR 0.9% 1000 ML INJ 1,000 ML IV ONE (17:30)
--- NOTE | 2017-12-21 17:47 | RADRPT ---
EXAM DATE/TIME: 12/21/2017 17:35 [facility] COMPARISON: No previous studies available for comparison. INDICATIONS : Short of breath for 3 days. MEDICAL HISTORY : Hypertension. Myocardial infarction. Hypercholesterolemia. Coronary artery disease. SURGICAL HISTORY : Coronary artery stent. Cholecystectomy. Cervical fusion. ENCOUNTER: Initial ACUITY: 3 days PAIN SCORE: 0/10 LOCATION: Bilateral chest FINDINGS: A single view of the chest demonstrates the lungs to be symmetrically aerated without evidence of mas s, infiltrate or effusion. The cardiomediastinal contours are unremarkable. Osseous structures are intact. CONCLUSION: No acute disease. Randy Hanson Jr., MD on December 21, 2017 at 17:44 Board Certified Radiologist. This report was verified electronically.
[2017-12-21 17:49] LABS: BASOPHIL # 0.2 TH/MM3 (0-0.2); BASOPHIL % 2.7 % (0.0-2.0); HEMATOCRIT 47.1 % (35.0-46.0); LYMPH % 13.5 % (9.0-44.0); MEAN CORPUSCULAR HEMOGLOBIN 29.2 PG (27.0-34.0); MEAN CORPUSCULAR HGB CONC 33.9 % (32.0-36.0); MEAN PLATELET VOLUME 7.8 FL (7.0-11.0); MONOCYTE # 0.5 TH/MM3 (0-0.9); NEUT % 76.8 % (16.0-70.0); PLATELET COUNT 188 TH/MM3 (150-450); RED BLOOD COUNT 5.47 MIL/MM3 (4.00-5.30); RED CELL DISTRIBUTION WIDTH 12.9 % (11.6-17.2); WHITE BLOOD COUNT 7.7 TH/MM3 (4.0-11.0)
[2017-12-21 17:56] LABS: CHLORIDE 102 MEQ/L (98-107); SODIUM (NA) 134 MEQ/L (136-145)
[2017-12-21 17:59] LABS: ALBUMIN 3.7 GM/DL (3.4-5.0); CALCIUM 8.5 MG/DL (8.5-10.1); INTERNATIONAL NORMALIZED RATIO 1.1 RATIO; PROTHROMBIN TIME - PATIENT 10.9 SEC (9.8-11.6)
[2017-12-21 18:00] LABS: BICARBONATE 24.1 MEQ/L (21.0-32.0); BLOOD UREA NITROGEN 12 MG/DL (7-18); GLUCOSE,RANDOM 117 MG/DL (74-106)
[2017-12-21 18:03] LABS: ALT (GPT) 25 U/L (10-53); AST (GOT) 34 U/L (15-37); CREATININE 0.75 MG/DL (0.50-1.00); GLOMERULAR FILTRATION RATE 78 ML/MIN (>89); PHOSPHORUS 3.5 MG/DL (2.5-4.9)
[2017-12-21 18:04] LABS: TOTAL BILIRUBIN ADULT 0.4 MG/DL (0.2-1.0); TOTAL PROTEIN 7.8 GM/DL (6.4-8.2)
[2017-12-21 18:05] LABS: ALKALINE PHOSPHATASE 91 U/L (45-117)
[2017-12-21 18:08] LABS: TROPONIN I 0.02 NG/ML (0.02-0.05)
[2017-12-21] MEDS ORDERED: ACETAMINOPHEN 325 MG TAB PO ONE (19:15)
[2017-12-21] MEDS ORDERED: LEVOFLOXACIN 750 MG PREMIX INJ 150 ML IV ONE (19:15)
[2017-12-21] MEDS ORDERED: predniSONE 20 MG TAB PO ONE (19:45)
[2017-12-21] MEDS ORDERED: NALOXONE HCL 0.4 MG/ML AMP IV PUSH PRN (19:45)
[2017-12-21] MEDS ORDERED: RESP: ALBUTEROL 2.5 MG/IPRATROPIUM 0.5 MG NEB (PRN) NEB (19:45)
[2017-12-21 19:54] LABS: BILIRUBIN, URINE NEG (NEG); BLOOD, URINE TRACE (NEG); GLUCOSE,URINE NEG (NEG); KETONE, URINE 15 mg/dL (NEG); NITRITE,URINE NEG (NEG); PH, URINE 5.5 (5.0-8.5); URINE LEUKOCYTE ESTERASE NEG (NEG)
[2017-12-21 20:02] LABS: URINE COLOR YELLOW (YELLW/STRAW)
[2017-12-21 20:03] LABS: MUCUS URINE OCC /lpf (OCC)
[2017-12-21 20:04] LABS: HYALINE CAST, URINE 0-2 /lpf (RARE); SQUAMOUS EPITHELIAL CELL URINE 0-5 /hpf (0-5)
[2017-12-21 20:05] LABS: AMORPHOUS SEDIMENT, URINE SMALL
[2017-12-21] MEDS: SODIUM CHLORIDE 0.9% FLUSH 10 ML FLUSH IV FLUSH SCH (21:00)
[2017-12-21] MEDS: RESP: ALBUTEROL 2.5 MG/IPRATROPIUM 0.5 MG NEB (SCH) NEB (22:48)
[2017-12-21] MEDS: methylPREDNISolone SOD SUCC 40 MG/1 ML VIAL IV PUSH SCH (23:31)
[2017-12-21] MEDS: SODIUM CHLORIDE 0.9% FLUSH 10 ML FLUSH IV FLUSH PRN (23:31)
[2017-12-22] VITALS (9 sets, daily range): BP systolic 126–149; BP diastolic 58–79; PULSE 81–95; RESP 17–22; TEMP 97.1–98.1; O2SAT 92–94
[2017-12-22] MEDS: RESP: ALBUTEROL 2.5 MG/IPRATROPIUM 0.5 MG NEB (SCH) NEB ×4 (03:10→21:41)
[2017-12-22 06:22] LABS: AUTOMATED NEUTROPHIL # 5.5 TH/MM3 (1.8-7.7); BASOPHIL % 0.3 % (0.0-2.0); HEMATOCRIT 43.9 % (35.0-46.0); HEMOGLOBIN 15.3 GM/DL (11.6-15.3); LYMPH % 7.2 % (9.0-44.0); LYMPHOCYTE # 0.4 TH/MM3 (1.0-4.8); MEAN CELL VOLUME 86.7 FL (80.0-100.0); MEAN CORPUSCULAR HEMOGLOBIN 30.2 PG (27.0-34.0); MEAN CORPUSCULAR HGB CONC 34.8 % (32.0-36.0); MEAN PLATELET VOLUME 7.9 FL (7.0-11.0); MONO % 0.7 % (0.0-8.0); NEUT % 91.8 % (16.0-70.0); PLATELET COUNT 174 TH/MM3 (150-450); RED BLOOD COUNT 5.07 MIL/MM3 (4.00-5.30); RED CELL DISTRIBUTION WIDTH 13.8 % (11.6-17.2); WHITE BLOOD COUNT 5.9 TH/MM3 (4.0-11.0)
[2017-12-22] MEDS: SODIUM CHLORIDE 0.9% FLUSH 10 ML FLUSH IV FLUSH PRN (06:27)
[2017-12-22] MEDS: methylPREDNISolone SOD SUCC 40 MG/1 ML VIAL IV PUSH SCH ×4 (06:27→23:24)
[2017-12-22 06:37] LABS: BICARBONATE 24.2 MEQ/L (21.0-32.0); CALCIUM 8.2 MG/DL (8.5-10.1)
[2017-12-22 06:41] LABS: CREATININE 0.73 MG/DL (0.50-1.00)
[2017-12-22] MEDS: PANTOPRAZOLE SOD 40 MG DELAYED RELEASE TAB PO SCH (08:50)
[2017-12-22] MEDS: SODIUM CHLORIDE 0.9% FLUSH 10 ML FLUSH IV FLUSH SCH ×2 (08:50→21:09)
[2017-12-22] MEDS ORDERED: DEXTROSE 50% IN WATER 50 ML VIAL(D50) IV PUSH PRN (10:30)
[2017-12-22] MEDS ORDERED: GLUCAGON 1 MG/ML VIAL OTHER PRN (10:30)
[2017-12-22 11:35] LABS: TROPONIN I 0.02 NG/ML (0.02-0.05)
[2017-12-22] MEDS: INSULIN ASPART SUPPLEMENTAL SCALE SQ SCH ×3 (12:36→21:15)
[2017-12-22 17:09] LABS: TROPONIN I 0.02 NG/ML (0.02-0.05)
[2017-12-22] MEDS: LEVOFLOXACIN 750 MG PREMIX INJ 150 ML IV SCH (21:09)
--- NOTE | 2017-12-22 21:50 | EKG ---
Date Performed: 12/21/2017 Time Performed: 17:54:33 PTAGE: 61 years EKG: SINUS TACHYCARDIA ABNORMAL RHYTHM ECG PREVIOUS TRACING : 01/16/2017 22.48 Since the prior tracing, there has been no significant ortega DOCTOR: Dylan Squires Interpretating Date/Time 12/22/2017 21:48:14
[2017-12-23] VITALS (8 sets, daily range): BP systolic 116–159; BP diastolic 60–76; PULSE 67–86; RESP 18–24; TEMP 97.2–99.1; O2SAT 90–95
[2017-12-23] MEDS: RESP: ALBUTEROL 2.5 MG/IPRATROPIUM 0.5 MG NEB (SCH) NEB ×4 (03:34→21:00)
[2017-12-23] MEDS: methylPREDNISolone SOD SUCC 40 MG/1 ML VIAL IV PUSH SCH ×3 (05:31→17:50)
[2017-12-23] MEDS: INSULIN ASPART SUPPLEMENTAL SCALE SQ SCH ×4 (07:43→21:38)
[2017-12-23] MEDS: PANTOPRAZOLE SOD 40 MG DELAYED RELEASE TAB PO SCH (09:05)
[2017-12-23] MEDS: SODIUM CHLORIDE 0.9% FLUSH 10 ML FLUSH IV FLUSH SCH ×2 (09:05→21:40)
--- NOTE | 2017-12-23 10:49 | HHI.HP ---
HPI Service [facility] Primary Care Physician No Primary Care Physician Admission Diagnosis Hypoxic Resp Failure, COPD Exacerbation. Diagnoses: Chief Complaint: Short of breath diarrhea Travel History International Travel<30 Days: No Contact w/Intl Traveler <30 Da: No Traveled to Known Affected Are: No History of Present Illness Delayed entry note from 12/22/2017 Patient seen and examined, 61 years old female admitted with short of breath started Wednesday then followed on Wednesday with diarrhea patient denied being on any antibiotic before, positive cough with phlegm and nausea and left chest discomfort, there was a report fever 101.5, patient has a history of coronary artery disease status post 2 stenting in ED she was found to have increase CPK, they have done VBG but not ABG, when I saw her she was on oxygen nasal cannula calm resting in bed. She denied abdominal pain with the diarrhea, no dysuria urgency or frequency orthopnea or PND Review of Systems All systems reviewed and was positive for what is mentioned in history of present illness otherwise negative Past Family Social History Past Medical History Coronary artery disease status post 2 stenting Back and neck surgery History of pneumonia a few weeks ago Cholecystectomy Past Surgical History As above Allergies: Coded Allergies: blue dye (Unverified Allergy, Severe, Edema, 12/21/17) cat dander (Unverified Allergy, Severe, FACIAL SWELLING, 12/21/17) cephalexin (Unverified Allergy, Severe, HIVES, 12/21/17) dog dander (Unverified Allergy, Severe, FACIAL SWELLING, 12/21/17) Family History Review with the patient,not aware of significant medical history runs in his family Social History Smoke 1 pack per day no alcohol or illicit drugs abuse Physical Exam Vital Signs Vital Signs Date Time Temp Pulse Resp B/P (MAP) Pulse Ox O2 Delivery O2 Flow Rate FiO2 12/23/17 08:00 97.9 75 24 127/66 (86) 92 12/23/17 05:20 98.8 67 22 121/64 (83) 94 12/23/17 01:17 97.6 76 22 141/76 (97) 93 12/22/17 21:41 93 Nasal Cannula 3.00 12/22/17 21:00 Nasal Cannula 3.00 12/22/17 21:00 95 12/22/17 20:03 98.0 83 22 149/76 (100) 93 12/22/17 16:00 98.0 92 21 138/70 (92) 94 12/22/17 12:00 97.8 82 18 126/58 (80) 94 Physical Exam GENERAL: This is a well-nourished, well-developed patient, in no apparent distress. SKIN: No rashes, warm and dry HEAD: Atraumatic. Normocephalic. EYES: Pupils equal round and reactive. Extraocular motions intact. No scleral icterus. ENT: Nose without bleeding, or drainage, Airway patent. NECK: Trachea midline. Supple CARDIOVASCULAR: Regular rate and rhythm without murmurs, gallops, or rubs. RESPIRATORY: No crackles with minimal wheezing GASTROINTESTINAL: Abdomen soft, non-tender, nondistended. Positive bowel sounds MUSCULOSKELETAL: Extremities without clubbing, cyanosis, or edema. Pedal pulses appreciated NEUROLOGICAL: Awake and alert. Moves all extremity. Normal speech.no focal neurological deficit Laboratory Laboratory Tests Test 12/22/17 10:50 12/22/17 10:58 12/22/17 16:39 Total Creatine Kinase 496 489 Creatine Kinase MB 7.2 7.3 Creatine Kinase MB % 1.5 1.5 Troponin I 0.02 0.02 Blood Gas Puncture Site LT RADIAL Blood Gas Patient Temperature 98.6 Blood Gas HCO3 23 Blood Gas Base Excess -1.0 Blood Gas Oxygen Saturation 87 Arterial Blood pH 7.40 Arterial Blood Partial Pressure CO2 38 Arterial Blood Partial Pressure O2 54 Arterial Blood Oxygen Content 19.0 Arterial Blood Carboxyhemoglobin 1.3 Arterial Blood Methemoglobin 0.9 Blood Gas Hemoglobin 15.7 Oxygen Delivery Device ROOM AIR Blood Gas Inspired Oxygen 21 Date/Time Source Procedure Growth Status 12/21/17 17:30 Blood Peripheral Aerobic Blood Culture - Preliminary NO GROWTH IN 1 DAY Resulted 12/21/17 17:30 Blood Peripheral Anaerobic Blood Culture - Preliminary NO GROWTH IN 1 DAY Resulted 12/21/17 18:10 Nasal Washing Influenza Types A,B Antigen (KEYUR) - Final NEGATIVE FOR FLU A AND B ANTIGEN.... Complete Result Diagram: 12/22/17 0530 12/22/17 0530 Imaging Last Impressions Chest X-Ray 12/21/17 1716 Signed Impressions: Service Date/Time: Thursday, December 21, 2017 17:35 - CONCLUSION: No acute disease. MD Sridhar Cruz Jr. VTE Risk Assessment Sridhar VTE Risk Assessment: Mod/High Risk (score >= 2) Caprini Risk Assessment Model Point Value = 1 Point Value = 2 Point Value = 3 Point Value = 5 Age 41-60 Minor surgery BMI > 25 kg/m2 Swollen legs Varicose veins or History of unexplained or recurrent spontaneous Oral contraceptives or hormone replacement Sepsis (< 1 month) Serious lung disease, including pneumonia (< 1 month) Abnormal pulmonary function Acute myocardial infarction Congestive heart failure (< 1 month) History of inflammatory bowel disease Medical patient at bed rest Age 61-74 Arthroscopic surgery Major open surgery (> 45 min) Laparoscopic surgery (> 45 min) Malignancy Confined to bed (> 72 hours) Immobilizing plaster cast Central venous access Age >= 75 History of VTE Family history of VTE Factor V Leiden Prothrombin [id number] Lupus anticoagulant Anticardiolipin antibodies Elevated serum homocysteine Heparin-induced thrombocytopenia Other congenital or acquired thrombophilia Stroke (< 1 month) Elective arthroplasty Hip, pelvis, or leg fracture Acute spinal cord injury (< 1 month) Prophylaxis Regimen Total Risk Factor Score Risk Level Prophylaxis Regimen 0-1 Low Early ambulation 2 Moderate Order ONE of the following: *Sequential Compression Device (SCD) *Heparin 5000 units SQ BID 3-4 Higher Order ONE of the following medications: *Heparin 5000 units SQ TID *Enoxaparin/Lovenox 40 mg SQ daily (WT < 150 kg, CrCl > 30 mL/min) *Enoxaparin/Lovenox 30 mg SQ daily (WT < 150 kg, CrCl > 10-29 mL/min) *Enoxaparin/Lovenox 30 mg SQ BID (WT < 150 kg, CrCl > 30 mL/min) AND/OR *Sequential Compression Device (SCD) 5 or more Highest Order ONE of the following medications: *Heparin 5000 units SQ TID (Preferred with Epidurals) *Enoxaparin/Lovenox 40 mg SQ daily (WT < 150 kg, CrCl > 30 mL/min) *Enoxaparin/Lovenox 30 mg SQ daily (WT < 150 kg, CrCl > 10-29 mL/min) *Enoxaparin/Lovenox 30 mg SQ BID (WT < 150 kg, CrCl > 30 mL/min) AND *Sequential Compression Device (SCD) Assessment and Plan Assessment and Plan 61 years old female with history of COPD presented with worsening short of breath and diarrhea Acute respiratory failure most likely COPD exacerbation, Still need to rule out underlying PE History of coronary artery disease status post stenting need to rule out underlying ACS History of hypertension DVT prophylaxis Plan: Admit to inpatient with telemetry Continue O2, DuoNeb, started on Solu-Medrol, Levaquin Chest x-ray reviewed personally by me no significant infiltrate Cardiac enzymes monitoring 3 sets They have done VBG in the ED, will need to repeat ABG We will order CT angiogram ruled out PE and assess lung parenchyma Stool to rule out C. difficile Lactinex Discussed Condition With Patient Clair Chacko MD Dec 23, 2017 10:49
--- NOTE | 2017-12-23 12:34 | RADRPT ---
EXAM DATE/TIME: 12/23/2017 11:40 [facility] COMPARISON: No previous studies available for comparison. INDICATIONS : Cough, short of breath and fever. Evaluate for infiltrate. RADIATION DOSE: 8.08 CTDIvol (mGy) MEDICAL HISTORY : Gastroesophageal reflux disease. Chronic obstructive pulmonary disease. Myocardial infarction. Hypert ension. SURGICAL HISTORY : Coronary artery stent. Cholecystectomy. ENCOUNTER: Initial ACUITY: 4 - 6 days PAIN SCALE: 0/10 LOCATION: chest TECHNIQUE: Volumetric scanning of the chest was performed. Using automated exposure control and adjustment of t he mA and/or kV according to patient size, radiation dose was kept as low as reasonably achievable to obtain optimal diagnostic quality images. DICOM format image data is available electronically for r eview and comparison. Follow-up recommendations for detected pulmonary nodules are based at a minimum on nodule size and pa tient risk factors according to Fleischner Society Guidelines. FINDINGS: LUNGS: There are occasional areas of mild groundglass infiltrate, most significantly in the right upper lobe with a small patch also present in the lingula. There are no suspicious nodules or masses. PLEURAE: There is no pleural thickening or pleural effusion. MEDIASTINUM: Granulomatous calcifications in mediastinal and left hilar lymph nodes. Coronary calcifications prese nt. AXILLAE: Within normal limits. No lymphadenopathy. MUSCULOSKELETAL: Within normal limits for patient age. MISCELLANEOUS: The visualized upper abdominal organs demonstrate no acute abnormality. CONCLUSION: Patchy mild ground glass infiltrates present. Jairon Junior MD on December 23, 2017 at 12:29 Board Certified Radiologist. This report was verified electronically.
[2017-12-23] MEDS: LACTOBACILLUS ACIDOPHILUS TAB PO SCH ×2 (12:56→17:50)
--- NOTE | 2017-12-23 13:01 | HHI.PR ---
Subjective Remarks Patient just came from VQ scan she still looks short-winded however she tells me in general she feels better than yesterday No fever or acute event overnight, they called me yesterday not able to do the CT angiogram due to patient being allergic to dye, I ordered ultrasound of the lower extremity with VQ scan rule out underlying DQ mismatch Objective Vitals Vital Signs Date Time Temp Pulse Resp B/P (MAP) Pulse Ox O2 Delivery O2 Flow Rate FiO2 12/23/17 12:00 97.4 80 24 119/60 (79) 90 12/23/17 11:17 93 Nasal Cannula 3.00 12/23/17 08:00 97.9 75 24 127/66 (86) 92 12/23/17 05:20 98.8 67 22 121/64 (83) 94 12/23/17 01:17 97.6 76 22 141/76 (97) 93 12/22/17 21:41 93 Nasal Cannula 3.00 12/22/17 21:00 Nasal Cannula 3.00 12/22/17 21:00 95 12/22/17 20:03 98.0 83 22 149/76 (100) 93 12/22/17 16:00 98.0 92 21 138/70 (92) 94 I/O 12/22/17 12/22/17 12/22/17 12/23/17 12/23/17 12/23/17 07:00 15:00 23:00 07:00 15:00 23:00 Intake Total 240 ml 650 ml Balance 240 ml 650 ml Intake Oral 240 ml 500 ml IV Total 150 ml # Voids 2 6 2 # Bowel Movements 2 2 Result Diagram: 12/22/1730 12/22/17 0530 Objective Remarks GENERAL: This is a well-nourished, well-developed patient, in no apparent distress. SKIN: No rashes, warm and dry HEAD: Atraumatic. Normocephalic. EYES: Pupils equal round and reactive. Extraocular motions intact. No scleral icterus. ENT: Nose without bleeding, or drainage, Airway patent. NECK: Trachea midline. Supple CARDIOVASCULAR: Regular rate and rhythm without murmurs, gallops, or rubs. RESPIRATORY: Very minimal wheezing, bilateral crackles GASTROINTESTINAL: Abdomen soft, non-tender, nondistended. Positive bowel sounds MUSCULOSKELETAL: Extremities without clubbing, cyanosis, or edema. Pedal pulses appreciated NEUROLOGICAL: Awake and alert. Moves all extremity. Normal speech.no focal neurological deficit A/P Assessment and Plan 61 years old female with history of COPD presented with worsening short of breath and diarrhea Acute hypoxic respiratory failure most likely Still need to rule out underlying PE History of coronary artery disease status post stenting need to rule out underlying ACS History of hypertension DVT prophylaxis Plan: Admit to inpatient with telemetry Continue O2, DuoNeb, started on Solu-Medrol, Levaquin Chest x-ray reviewed personally by me no significant infiltrate Cardiac enzymes monitoring 3 sets ABG showing hypoxia with PO2 [address] angiogram ruled out PE, patient allergic to dye, we'll do VQ scan and ultrasound of the lower extremity, along with CT of the lung without contrast, consult pulmonary Stool to rule out C. difficile Lactinex Clair Chacko MD Dec 23, 2017 13:01
--- NOTE | 2017-12-23 14:51 | RADRPT ---
EXAM DATE/TIME: 12/23/2017 14:17 [facility] COMPARISON: CHEST SINGLE AP, December 21, 2017, 17:35. INDICATIONS : Sever shorntess of breath. MEDICAL HISTORY : Myocardial infarction. Hypercholesterolemia. Chronic obstructive pulmonary disease. GERD. Arthrit is. CAD. Pneumonia. Emphysema. SURGICAL HISTORY : Cholecystectomy. Fusion, cervical. Cardiac cath with stent placement. ENCOUNTER: Initial ACUITY: 3 days PAIN SCORE: 0/10 LOCATION: chest FINDINGS: Lungs are hyperinflated and continue to demonstrate diffuse interstitial prominence. There is no evid ence of acute airspace disease. Heart and mediastinal structures are stable. CONCLUSION: COPD with chronic appearing interstitial lung disease. No evidence of acute airspace disease. Deven Cotto MD on December 23, 2017 at 14:49 Board Certified Radiologist. This report was verified electronically.
--- NOTE | 2017-12-23 15:03 | RADRPT ---
EXAM DATE/TIME: 12/23/2017 14:25 [facility] COMPARISON: No previous studies available for comparison. INDICATIONS : Bilateral leg pain. MEDICAL HISTORY : Myocardial infarction. Hypercholesterolemia. Hypertension. Glasses. Dentures. Coronary artery disease . Anticoagulant therapy. Chest pain. COPD. Dyspnea. Gastroesophageal reflux disease. Arthritis. Anxie ty. SURGICAL HISTORY : Coronary artery stent.Cholecystectomy. C5-C6 fusion. ENCOUNTER: Initial ACUITY: 1 day PAIN SCORE: 2/10 LOCATION: Bilateral legs. TECHNIQUE: Venous ultrasound of the left and right leg was performed from the inguinal ligament to the proximal calf. Real-time, color Doppler and spectral tracing, compression and augmentation techniques were us ed. FINDINGS: RIGHT LEG: There is normal compressibility of the deep venous system from the inguinal region to the proximal ca lf. No echogenic clot is seen in the lumen of the common femoral, femoral, popliteal, and posterior tibial veins. There is a normal response of the venous system to proximal and distal augmentation an d respiration. LEFT LEG: There is normal compressibility of the deep venous system from the inguinal region to the proximal ca lf. No echogenic clot is seen in the lumen of the common femoral, femoral, popliteal, and posterior tibial veins. There is a normal response of the venous system to proximal and distal augmentation an d respiration. CONCLUSION: Normal examination. Jairon Junior MD on December 23, 2017 at 15:01 Board Certified Radiologist. This report was verified electronically.
--- NOTE | 2017-12-23 16:40 | RADRPT ---
EXAM DATE/TIME: 12/23/2017 14:49 [facility] COMPARISON: CHEST SINGLE AP, December 23, 2017, 14:17. INDICATIONS : Shortness of breath, coughing. DOSE: 8.7 mCi Tc99m MAA IV 0.91 mCi Tc99m DTPA aerosol MEDICAL HISTORY : Hypertension. Myocardial infarction. Chronic obstructive pulmonary disease. SURGICAL HISTORY : Cholecystectomy. Coronary artery stent. ENCOUNTER: Initial ACUITY: 1 day PAIN SCALE: 3/10 LOCATION: chest TECHNIQUE: Following five minutes of tidal breathing of DTPA aerosol, planar images of the lungs were performed in eight projections. The patient was then injected with MAA, and eight-view perfusion scan was perf ormed. FINDINGS: Perfusion is fairly homogeneous and intact throughout with no definite segmental or subsegmental defe cts to suggest embolism. Ventilation is moderately heterogeneous with mild central deposition of trac er. The overall appearance is most suggestive of airways disease. CONCLUSION: Low probability scan for pulmonary embolism Jairon Junior MD on December 23, 2017 at 16:37 Board Certified Radiologist. This report was verified electronically.
--- NOTE | 2017-12-23 21:33 | MB ---
cc: YasirKieranOWENCONY DATE OF CONSULTATION 12/23/17 REASON FOR CONSULTATION COPD with exacerbation. HISTORY OF PRESENT ILLNESS This is a 61-year-old white female with a history of chronic bronchitis who was experiencing shortness of breath and cough with congestion and nausea. The patient was also complaining of pain along the lower chest and running a fever of up to 101 degrees and thus came to the emergency room and was admitted. A CT of the chest was done which showed bilateral ground-glass infiltrates. A VQ lung scan showed low probability for pulmonary emboli. Chest x-ray showed mild interstitial changes. The patient has a cough. She brings up green sputum. She has fevers and she is wheezing. After being on IV steroids and antibiotics, she is much better today. Still has a cough and shortness of breath with exertion. PAST MEDICAL HISTORY 1. History of coronary artery disease with stenting x2 2. Prior history of pneumonia. 3. History of chronic bronchitis. 4. History of cholecystectomy 5. Surgery on her lower back and neck. HABITS The patient smoked one half to one-pack per day for over 42 years, continues to smoke. No significant alcohol use. FAMILY HISTORY Father is alive in good health. Mother of heart disease and COPD. ALLERGIES KEFLEX DOG DANDER REVIEW OF SYSTEMS The patient has lost some weight. Denies leg swelling. She has no headaches or blackouts. She has some postnasal drip and wheezing. She has some epigastric distress and nausea. Denies urinary symptoms and no leg or calf muscle pains. lesions. She does have mild skin rash of the lower extremities. MEDICATIONS Med list was reviewed from the chart. PHYSICAL EXAMINATION GENERAL: An averagely built middle-aged white female who is pale, alert in no acute distress. VITAL SIGNS: Blood pressure 130/70, pulse 80, respirations 18, temperature 97.5. HEENT: Head normocephalic. Pupils are reactive. Tongue is moist. Throat is injected. NECK: Supple. No bruits or thyroid enlargement. CHEST: Distant breath sounds with expiratory wheezes bilaterally, prolonged expirations with occasional basilar crackles. CARDIAC: Heart sounds are irregular S1 and S2. No murmur. ABDOMEN: Soft, protuberant without masses. No organomegaly or tenderness. Bowel sounds are active. EXTREMITIES: No lesions and no edema. NEUROLOGIC: Reflexes are 1+ with no gross motor deficits. SKIN: No definite lesions observed. IMPRESSION 1. COPD with acute exacerbation 2. Interstitial lung disease 3. Atypical pneumonia 4. Nicotine dependency 5. History of coronary artery disease with stenting. PLAN The patient has been placed on Levaquin intravenously 750 mg and Solu-Medrol 40 mg IV q. six. We will place her on O2 at two liters and wean to room air if she is clinically better. A pulmonary function study to be done in a.m. with bronchodilators. The patient was counseled about quitting cigarette smoking and to use a nicotine patch. Symbicort 160/4.5 mcg two puffs twice daily was added and DuoNeb solution continued with nebulizer q.i.d. and p.r.n. Thank you, Dr. Chacko, for this consultation. MD HOLLI Ho/ /5:43 PM /9:10 PM
[2017-12-23] MEDS: LEVOFLOXACIN 750 MG PREMIX INJ 150 ML IV SCH (21:40)
[2017-12-23] MEDS: BUDESONIDE-FORMOTEROL 160/4.5 MCG INHALER INH SCH (22:05)
[2017-12-24] VITALS (9 sets, daily range): BP systolic 119–160; BP diastolic 61–78; PULSE 62–79; RESP 14–20; TEMP 96.8–99.1; O2SAT 90–98
[2017-12-24] MEDS: methylPREDNISolone SOD SUCC 40 MG/1 ML VIAL IV PUSH SCH ×2 (00:50→05:40)
[2017-12-24] MEDS: RESP: ALBUTEROL 2.5 MG/IPRATROPIUM 0.5 MG NEB (SCH) NEB ×4 (04:41→20:16)
[2017-12-24] MEDS: INSULIN ASPART SUPPLEMENTAL SCALE SQ SCH ×4 (08:00→21:23)
[2017-12-24] MEDS: CARVEDILOL 3.125 MG TAB PO SCH ×2 (09:15→21:19)
[2017-12-24] MEDS: LACTOBACILLUS ACIDOPHILUS TAB PO SCH ×3 (09:15→17:46)
[2017-12-24] MEDS: PANTOPRAZOLE SOD 40 MG DELAYED RELEASE TAB PO SCH (09:15)
[2017-12-24] MEDS: ASPIRIN 325 MG TAB PO SCH (09:15)
[2017-12-24] MEDS: FENOFIBRATE 145 MG TAB PO SCH (09:15)
[2017-12-24] MEDS: BUDESONIDE-FORMOTEROL 160/4.5 MCG INHALER INH SCH ×2 (09:18→21:20)
[2017-12-24] MEDS: SODIUM CHLORIDE 0.9% FLUSH 10 ML FLUSH IV FLUSH SCH ×2 (09:18→21:20)
[2017-12-24] MEDS ORDERED: methylPREDNISolone SOD SUCC 125 MG/2 ML VIAL IV PUSH SCH (12:00)
--- NOTE | 2017-12-24 12:32 | HHI.PR ---
Subjective Remarks Hypoxemic respiratory failure secondary to COPD. Overall doing quite a bit better. Tolerating nebulizers. Pulmonary function test results pending. Patient complaining of anxiety and requesting Valium. Objective Vitals Vital Signs Date Time Temp Pulse Resp B/P (MAP) Pulse Ox O2 Delivery O2 Flow Rate FiO2 12/24/17 09:43 93 Nasal Cannula 3.00 12/24/17 08:00 96.8 71 14 150/73 (98) 93 12/24/17 04:41 98 Nasal Cannula 3.00 12/24/17 04:00 99.1 67 20 160/73 (102) 94 12/24/17 00:00 98.4 79 20 119/61 (80) 93 12/23/17 21:00 Nasal Cannula 2.00 12/23/17 21:00 91 Nasal Cannula 3.00 12/23/17 21:00 77 12/23/17 20:00 99.1 76 20 159/75 (103) 93 12/23/17 17:55 92 Room Air 12/23/17 16:00 97.2 86 24 145/70 (95) 91 I/O 12/23/17 12/23/17 12/23/17 12/24/17 12/24/17 12/24/17 07:00 15:00 23:00 07:00 15:00 23:00 Intake Total 720 ml 150 ml 960 ml 400 ml Balance 720 ml 150 ml 960 ml 400 ml Intake Oral 720 ml 960 ml 400 ml IV Total 150 ml # Voids 2 2 6 Result Diagram: 12/22/17 0530 12/22/17 0530 Imaging Last Impressions Lung Scan-V Nuclear Medicine 12/23/17 0000 Signed Impressions: Service Date/Time: December 14:49 - CONCLUSION: Low probability scan for pulmonary embolism Jairon Junior MD Lower Extremity Ultrasound 12/23/17 0000 Signed Impressions: Service Date/Time: December 14:25 - CONCLUSION: Normal examination. Jairon Junior MD Chest X-Ray 12/23/17 0000 Signed Impressions: Service Date/Time: December 14:17 - CONCLUSION: COPD with chronic appearing interstitial lung disease. No evidence of acute airspace disease. Devne Cotto MD Chest CT 12/23/17 0000 Signed Impressions: Service Date/Time: December 11:40 - CONCLUSION: Patchy mild ground glass infiltrates present. Jairon Junior MD Objective Remarks GENERAL: This is a well-nourished, well-developed patient, in no apparent distress. CARDIOVASCULAR: Regular rate and rhythm without murmurs, gallops, or rubs. RESPIRATORY: Clear to auscultation. Breath sounds equal bilaterally. No wheezes , rales, or rhonchi. GASTROINTESTINAL: Abdomen soft, non-tender, nondistended. Normal active bowel sounds MUSCULOSKELETAL: Extremities without clubbing, cyanosis, or edema. NEURO: Alert & Oriented x4 to person, place, time, situation. Moves all ext x4 Procedures Pulmonary function test A/P Problem List: (1) Acute hypoxemic respiratory failure ICD Code: J96.01 - Acute respiratory failure with hypoxia Plan: Multifactorial due to COPD exacerbation and pneumonia Continue with IV steroid taper, antibiotics by mouth, Symbicort Follow-up for memory function test Follow-up oxygenation needs (2) Anxiety ICD Code: F41.9 - Anxiety disorder, unspecified Plan: Continue with Valium as needed (3) Rhabdomyolysis ICD Code: M62.82 - Rhabdomyolysis Plan: Continue with IV hydration and follow CPK in a.m. Discharge Planning Pending progress and oxygenation needs likely discharge in a.m. Alexus Phan MD Dec 24, 2017 12:32
[2017-12-24 13:38] LABS: BICARBONATE 26.2 MEQ/L (21.0-32.0); CALCIUM 8.5 MG/DL (8.5-10.1)
[2017-12-24 13:41] LABS: CREATININE 0.83 MG/DL (0.50-1.00)
[2017-12-24] MEDS: DIAZEPAM 5 MG TAB PO PRN (13:42)
[2017-12-24] MEDS: SODIUM CHLOR 0.9% 1000 ML INJ 1,000 ML IV SCH (17:40)
[2017-12-25] VITALS (7 sets, daily range): BP systolic 136–149; BP diastolic 58–73; PULSE 70–78; RESP 15–20; TEMP 96.6–99.6; O2SAT 91–95
[2017-12-25] MEDS: SODIUM CHLOR 0.9% 1000 ML INJ 1,000 ML IV SCH ×3 (03:52→18:30)
[2017-12-25] MEDS: RESP: ALBUTEROL 2.5 MG/IPRATROPIUM 0.5 MG NEB (SCH) NEB ×3 (07:43→19:29)
[2017-12-25] MEDS: INSULIN ASPART SUPPLEMENTAL SCALE SQ SCH ×4 (08:00→21:00)
[2017-12-25] MEDS: CARVEDILOL 3.125 MG TAB PO SCH ×2 (08:34→21:57)
[2017-12-25] MEDS: FENOFIBRATE 145 MG TAB PO SCH (08:34)
[2017-12-25] MEDS: LACTOBACILLUS ACIDOPHILUS TAB PO SCH ×3 (08:34→19:06)
[2017-12-25] MEDS: PANTOPRAZOLE SOD 40 MG DELAYED RELEASE TAB PO SCH (08:34)
[2017-12-25] MEDS: ASPIRIN 325 MG TAB PO SCH (08:35)
[2017-12-25] MEDS: SODIUM CHLORIDE 0.9% FLUSH 10 ML FLUSH IV FLUSH SCH ×2 (08:36→21:58)
[2017-12-25] MEDS: BUDESONIDE-FORMOTEROL 160/4.5 MCG INHALER INH SCH ×2 (08:37→21:57)
[2017-12-25] MEDS ORDERED: LEVA750T9 PO (11:09)
[2017-12-25] MEDS ORDERED: PRED20 PO (11:09)
[2017-12-25] MEDS ORDERED: DOXY100C PO (11:09)
[2017-12-25] MEDS ORDERED: NEBULIZER1 MI1 (11:09)
[2017-12-25] MEDS ORDERED: Albuterol-Ipratropium Neb NEB (11:09)
--- NOTE | 2017-12-25 11:11 | HHI.DS ---
Discharge Summary Admission Date Dec 21, 2017 at 19:42 Discharge Date: Dec 25, 2017 Admitting Diagnosis Hypoxic Resp Failure, COPD Exacerbation. (1) Acute hypoxemic respiratory failure ICD Code: J96.01 - Acute respiratory failure with hypoxia (2) Anxiety ICD Code: F41.9 - Anxiety disorder, unspecified (3) Rhabdomyolysis ICD Code: M62.82 - Rhabdomyolysis (4) COPD (chronic obstructive pulmonary disease) ICD Code: J44.9 - Chronic obstructive pulmonary disease, unspecified Procedures Pulmonary function test Brief History - From Admission Delayed entry note from 12/22/2017 Patient seen and examined, 61 years old female admitted with short of breath started Wednesday then followed on Wednesday with diarrhea patient denied being on any antibiotic before, positive cough with phlegm and nausea and left chest discomfort, there was a report fever 101.5, patient has a history of coronary artery disease status post 2 stenting in ED she was found to have increase CPK, they have done VBG but not ABG, when I saw her she was on oxygen nasal cannula calm resting in bed. She denied abdominal pain with the diarrhea, no dysuria urgency or frequency orthopnea or PND CBC/BMP: 12/22/17 0530 12/24/17 1311 Significant Findings Laboratory Tests Test 12/22/17 16:39 12/24/17 13:11 Total Creatine Kinase 489 U/L (26-192) 201 U/L (26-192) Creatine Kinase MB 7.3 NG/ML (0.5-3.6) 4.7 NG/ML (0.5-3.6) Random Glucose 144 MG/DL (74-106) Estimat Glomerular Filtration Rate 69 ML/MIN (>89) Imaging Last Impressions Lung Scan-VQ Nuclear Medicine 12/23/17 0000 Signed Impressions: Service Date/Time: December 14:49 - CONCLUSION: Low probability scan for pulmonary embolism Jairon Junior MD Lower Extremity Ultrasound 12/23/17 0000 Signed Impressions: Service Date/Time: December 14:25 - CONCLUSION: Normal examination. Jairon Junior MD Chest X-Ray 12/23/17 0000 Signed Impressions: Service Date/Time: December 14:17 - CONCLUSION: COPD with chronic appearing interstitial lung disease. No evidence of acute airspace disease. Deven Cotto MD Chest CT 12/23/17 0000 Signed Impressions: Service Date/Time: December 11:40 - CONCLUSION: Patchy mild ground glass infiltrates present. Jairon Junior MD PE at Discharge GENERAL: This is a well-nourished, well-developed patient, in no apparent distress. CARDIOVASCULAR: Regular rate and rhythm without murmurs, gallops, or rubs. RESPIRATORY: Clear to auscultation. Breath sounds equal bilaterally. No wheezes , rales, or rhonchi. GASTROINTESTINAL: Abdomen soft, non-tender, nondistended. Normal active bowel sounds MUSCULOSKELETAL: Extremities without clubbing, cyanosis, or edema. NEURO: Alert & Oriented x4 to person, place, time, situation. Moves all ext x4 Pt update on day of discharge Patient seen today in follow-up for acute respiratory failure and COPD. Discharge plans discussed with patient. Pending walk test she will be discharged home Hospital Course Patient seen and treated for COPD exacerbation, and overall is improved after IV steroids, IV antibiotics and nebulized bronchodilator treatment. Patient was seen by adult health clinical nurse specialist team and did have pointed function test completed. Overall the patient did well and was discharged home Pt Condition on Discharge: Good Discharge Disposition: Discharge Home Discharge Time: > 30 minutes Discharge Instructions DIET: Follow Instructions for: As Tolerated, No Restrictions Activities you can perform: Regular-No Restrictions Follow up Referrals: Pulmonology with Shereen Simpson MD New Medications: Doxycycline Hyclate (Doxycycline Hyclate) 100 Mg Cap 100 MG PO BID for Infection, #20 CAP 0 Refills Nebulizer (Nebulizer) 1 Mis Mis EA .XX DIRECTED for Breathing Treatment, #1 0 Refills Prednisone (Prednisone) 20 Mg Tab 20 MG PO DIRECTED for Inflammation, #20 TAB 0 Refills 40 MG twice a day x 3 days, then 20 MG daily x 3 days, then 10 MG daily x 3 days Levofloxacin (Levaquin) 750 Mg Tablet 750 MG PO DAILY@1100 for Infection, #3 TAB [Albuterol-Ipratropium Neb] () 1 AMPULE NEBU 1 AMPULE NEB Q6HR WHILE AWAKE NEB for copd, #90 3 Refills Continued Medications: Aspirin (Aspirin) 325 Mg Tab 325 MG PO DAILY, #30 TAB 0 Refills Carvedilol (Carvedilol) 3.125 Mg Tab 3.125 MG PO BID, #60 TAB 0 Refills Diazepam (Diazepam) 5 Mg Tab 5 MG PO TID PRN for ANXIETY, TAB 0 Refills Fenofibrate Micronized (Fenofibrate Micronized) 200 Mg Cap 200 MG PO DAILY, #30 CAP 0 Refills Fluticasone-Vilanterol Inh (Breo Ellipta Inh) 100-25 Mcg/Act Inh 1 PUFF INH DAILY, #1 INHALER 0 Refills Use daily at the same time. Alexus Phan MD Dec 25, 2017 11:11
[2017-12-25] MEDS ORDERED: OXYGENTANK NAS.CANULA (12:16)
[2017-12-25] MEDS: LEVOFLOXACIN 750 MG TAB PO SCH (13:33)
[2017-12-25] MEDS: DIAZEPAM 5 MG TAB PO PRN ×2 (13:36→21:58)
[2017-12-25] MEDS ORDERED: IPRAAER INH (14:18)
[2017-12-25] MEDS ORDERED: TIOT12.9 INH (14:18)
[2017-12-26] VITALS (7 sets, daily range): BP systolic 117–145; BP diastolic 58–69; PULSE 60–71; RESP 16–24; TEMP 96.3–99.6; O2SAT 92–97
[2017-12-26] MEDS: SODIUM CHLOR 0.9% 1000 ML INJ 1,000 ML IV SCH (04:30)
[2017-12-26] MEDS: RESP: ALBUTEROL 2.5 MG/IPRATROPIUM 0.5 MG NEB (SCH) NEB ×3 (07:23→19:58)
--- NOTE | 2017-12-26 09:06 | HHI.PR ---
Subjective Remarks Patient seen and evaluated today in follow-up for COPD exacerbation. She does qualify for oxygen but we have a delay in discharge due to the [facility] not being able to approve her oxygen although she does qualify for that. Objective Vitals Vital Signs Date Time Temp Pulse Resp B/P (MAP) Pulse Ox O2 Delivery O2 Flow Rate FiO2 12/26/17 07:24 95 Nasal Cannula 2.00 12/26/17 00:32 99.6 71 18 138/67 (90) 92 12/25/17 20:00 98.5 78 18 145/67 (93) 93 12/25/17 19:32 95 Nasal Cannula 2.00 12/25/17 19:00 92 Nasal Cannula 2.00 12/25/17 18:10 Nasal Cannula 2.00 12/25/17 16:00 99.6 75 18 144/70 (94) 94 I/O 12/25/17 12/25/17 12/25/17 12/26/17 12/26/17 12/26/17 07:00 15:00 23:00 07:00 15:00 23:00 Intake Total 1752 ml 926 ml 540 ml Output Total 9 ml Balance 1752 ml 917 ml 540 ml Intake Oral 0 ml 800 ml 540 ml IV Total 1752 ml 126 ml Output Urine Total 8 ml Stool Total 1 ml # Voids 3 2 # Bowel Movements 0 Result Diagram: 12/22/17 0530 12/24/17 1311 Objective Remarks GENERAL: This is a well-nourished, well-developed patient, in no apparent distress. CARDIOVASCULAR: Regular rate and rhythm without murmurs, gallops, or rubs. RESPIRATORY: Clear to auscultation. Breath sounds equal bilaterally. No wheezes , rales, or rhonchi. GASTROINTESTINAL: Abdomen soft, non-tender, nondistended. Normal active bowel sounds MUSCULOSKELETAL: Extremities without clubbing, cyanosis, or edema. NEURO: Alert & Oriented x4 to person, place, time, situation. Moves all ext x4 Procedures Pulmonary function test A/P Problem List: (1) Acute hypoxemic respiratory failure ICD Code: J96.01 - Acute respiratory failure with hypoxia Plan: Multifactorial due to COPD exacerbation and pneumonia Continue with po steroid taper, antibiotics by mouth, Symbicort Patient qualifies for home O2 (2) Anxiety ICD Code: F41.9 - Anxiety disorder, unspecified Plan: Continue with Valium as needed (3) Rhabdomyolysis ICD Code: M62.82 - Rhabdomyolysis Plan: Improved (4) COPD (chronic obstructive pulmonary disease) ICD Code: J44.9 - Chronic obstructive pulmonary disease, unspecified Plan: Patient encouraged to discontinue tobacco, continue with nebulized bronchodilators, steroid taper (5) Coronary artery disease ICD Code: I25.10 - Atherosclerotic heart disease of [place] coronary artery without angina pectoris Plan: patient will continue with aspirin, Coreg and Tri-Cor Stable Assessment and Plan DC IV fluids Discharge Planning Discharge when O2 and nebulizer approved by [place] Alexus Phan MD Dec 26, 2017 09:06
[2017-12-26] MEDS: BUDESONIDE-FORMOTEROL 160/4.5 MCG INHALER INH SCH ×2 (10:01→20:20)
[2017-12-26] MEDS: FENOFIBRATE 145 MG TAB PO SCH (10:02)
[2017-12-26] MEDS: CARVEDILOL 3.125 MG TAB PO SCH ×2 (10:02→20:19)
[2017-12-26] MEDS: LACTOBACILLUS ACIDOPHILUS TAB PO SCH ×3 (10:02→18:14)
[2017-12-26] MEDS: PANTOPRAZOLE SOD 40 MG DELAYED RELEASE TAB PO SCH (10:02)
[2017-12-26] MEDS: ASPIRIN 325 MG TAB PO SCH (10:02)
[2017-12-26] MEDS: SODIUM CHLORIDE 0.9% FLUSH 10 ML FLUSH IV FLUSH SCH ×2 (10:03→20:19)
[2017-12-26] MEDS: ENOXAPARIN SODIUM 40 MG/0.4 ML SYRINGE SQ SCH (10:21)
[2017-12-26] MEDS: LEVOFLOXACIN 750 MG TAB PO SCH (10:21)
[2017-12-26] MEDS: predniSONE 20 MG TAB PO SCH ×2 (10:24→20:19)
[2017-12-26] MEDS: DIAZEPAM 5 MG TAB PO PRN (18:10)
[2017-12-27] VITALS: BP 131/66; PULSE 64; RESP 20; TEMP 96.5; O2SAT 92
[2017-12-27 07:43] VITALS: BP 140/68; PULSE 67; RESP 20; TEMP 96.8; O2SAT 91
[2017-12-27 07:50] VITALS: O2SAT 94
[2017-12-27] MEDS: RESP: ALBUTEROL 2.5 MG/IPRATROPIUM 0.5 MG NEB (SCH) NEB (07:54)
[2017-12-27] MEDS: predniSONE 20 MG TAB PO SCH (09:19)
[2017-12-27] MEDS: PANTOPRAZOLE SOD 40 MG DELAYED RELEASE TAB PO SCH (09:19)
[2017-12-27] MEDS: CARVEDILOL 3.125 MG TAB PO SCH (09:19)
[2017-12-27] MEDS: LACTOBACILLUS ACIDOPHILUS TAB PO SCH ×2 (09:19→12:38)
[2017-12-27] MEDS: FENOFIBRATE 145 MG TAB PO SCH (09:19)
[2017-12-27] MEDS: ASPIRIN 325 MG TAB PO SCH (09:20)
[2017-12-27] MEDS: SODIUM CHLORIDE 0.9% FLUSH 10 ML FLUSH IV FLUSH SCH (09:20)
[2017-12-27] MEDS: ENOXAPARIN SODIUM 40 MG/0.4 ML SYRINGE SQ SCH (09:20)
[2017-12-27] MEDS: BUDESONIDE-FORMOTEROL 160/4.5 MCG INHALER INH SCH (09:20)
--- NOTE | 2017-12-27 11:22 | HHI.PR ---
Subjective Remarks patient seen in the diet today in follow-up for COPD with exacerbation. [facility] for continue discharge planning and the patient requires home O2. Otherwise patient feels well Objective Vitals Vital Signs Date Time Temp Pulse Resp B/P (MAP) Pulse Ox O2 Delivery O2 Flow Rate FiO2 12/27/17 07:50 94 Nasal Cannula 2.00 12/27/17 07:43 96.8 67 20 140/68 (92) 91 12/27/17 00:00 96.5 64 20 131/66 (87) 92 12/26/17 20:00 Nasal Cannula 2.00 12/26/17 20:00 97.9 60 24 125/66 (85) 94 12/26/17 19:58 97 Nasal Cannula 2.00 12/26/17 16:00 97.1 66 16 145/69 (94) 93 12/26/17 12:00 96.3 68 18 117/58 (77) 92 I/O 12/26/17 12/26/17 12/26/17 12/27/17 12/27/17 12/27/17 07:00 15:00 23:00 07:00 15:00 23:00 Intake Total 540 ml 2 ml 240 ml Balance 540 ml 2 ml 240 ml Intake Oral 540 ml 240 ml IV Total 2 ml # Voids 2 2 # Bowel Movements 0 0 Result Diagram: 12/24/17 1311 Objective Remarks GENERAL: This is a well-nourished, well-developed patient, in no apparent distress. CARDIOVASCULAR: Regular rate and rhythm without murmurs, gallops, or rubs. RESPIRATORY: Clear to auscultation. Breath sounds equal bilaterally. No wheezes , rales, or rhonchi. GASTROINTESTINAL: Abdomen soft, non-tender, nondistended. Normal active bowel sounds MUSCULOSKELETAL: Extremities without clubbing, cyanosis, or edema. NEURO: Alert & Oriented x4 to person, place, time, situation. Moves all ext x4 Procedures Pulmonary function test A/P Problem List: (1) Acute hypoxemic respiratory failure ICD Code: J96.01 - Acute respiratory failure with hypoxia Plan: Multifactorial due to COPD exacerbation and pneumonia Continue with po steroid taper, antibiotics by mouth, Symbicort Patient qualifies for home O2 and we will need to repeat her walk test as it has while we were awaiting the [facility] (2) Anxiety ICD Code: F41.9 - Anxiety disorder, unspecified Plan: Continue with Valium as needed (3) Rhabdomyolysis ICD Code: M62.82 - Rhabdomyolysis (4) COPD (chronic obstructive pulmonary disease) ICD Code: J44.9 - Chronic obstructive pulmonary disease, unspecified Plan: Patient encouraged to discontinue tobacco, continue with nebulized bronchodilators, steroid taper (5) Coronary artery disease ICD Code: I25.10 - Atherosclerotic heart disease of [place] coronary artery without angina pectoris Plan: patient will continue with aspirin, Coreg and Tri-Cor Stable Discharge Planning Discharge when O2 and nebulizer approved by [place] Alexus Phan MD Dec 27, 2017 11:22
[2017-12-27] MEDS: DIAZEPAM 5 MG TAB PO PRN (11:36)
[2017-12-27] MEDS: LEVOFLOXACIN 750 MG TAB PO SCH (11:36)
[2017-12-27 12:00] VITALS: BP 131/71; PULSE 68; RESP 20; TEMP 98; O2SAT 94
== END 2017-12-27 13:51 | disposition home or self-care (01) | DRG 192 ==
LOC: PHED 16:53 → PHEDA 19:42 → PH3A 22:28
PROVIDERS: ADMIT Hospitalist; ATTEND Hospitalist
DX: J44.1 Chronic obstructive pulmonary disease with (acute) exacerbation (principal); I10 Essential (primary) hypertension; I25.10 Atherosclerotic heart disease of native coronary artery without angina pectoris; E78.00 Pure hypercholesterolemia, unspecified; F17.210 Nicotine dependence, cigarettes, uncomplicated; R19.7 Diarrhea, unspecified; F41.9 Anxiety disorder, unspecified; I25.2 Old myocardial infarction; Z90.49 Acquired absence of other specified parts of digestive tract; Z95.5 Presence of coronary angioplasty implant and graft
CPT/HCPCS: 36600; 71045; 71250; 78582; 80048; 80053; 81001; 82550; 82552; 82805; 82948; 83605; 83690; 83735; 84100; 84484; 85025; 85610; 85730; 87040; 87493; 87804; 93005; 93970; 94060; 94618; 94640; 94664; 96361; 96374; A9540; A9567; J1650; J1815; J1956; J2920; J7030; J7512

== ENCOUNTER 2018-01-28 15:29 | Emergency (ER) | payer OTHER ==
[~2018-01-28] VITALS: Ht 167.6 cm; Wt 73.0 kg
[~2018-01-28 15:29] MED LIST changes: +Albuterol-Ipratropium Neb NEB; -BUTA1CAP PO; +DOXY100C PO; +IPRAAER INH; -KETO2CRE TOPICAL; +LEVA750T9 PO; +NEBULIZER1 MI1; -NYST1000 SWISH-SWAL; -ONDA8TAB8 SL; +OXYGENTANK NAS.CANULA; +PRED20 PO; +TIOT12.9 INH; -TRAM50TA PO
[2018-01-28 15:37] VITALS: BP 204/99; PULSE 72; RESP 16; TEMP 97.8; O2SAT 98
--- NOTE | 2018-01-28 16:22 | RADRPT ---
EXAM DATE/TIME: 01/28/2018 16:03 [facility] COMPARISON: No previous studies available for comparison. INDICATIONS : Left humerus pain post fall. MEDICAL HISTORY : Gastroesophageal reflux disease. Arthritis. Myocardial infarction. Hypercholesterolemia. Hyperte nsion. Coronary artery disease. Anticoagulant therapy. COPD. Anxiety SURGICAL HISTORY : Coronary artery stent.Cholecystectomy. C5-C6 fusion ENCOUNTER: Initial ACUITY: 1 day PAIN SCORE: 10/10 LOCATION: Left upper extremity FINDINGS: Two view examination of the left humerus demonstrates displaced fracture of proximal shaft. There is soft tissue swelling. CONCLUSION: Displaced fracture of proximal shaft of humerus. Gonzalo Draper MD on January 28, 2018 at 16:15 Board Certified Radiologist. This report was verified electronically.
[2018-01-28] MEDS ORDERED: MORPHINE SULFATE 4 MG/ML INJ IV PUSH ONE ×2 (17:45→19:00)
[2018-01-28] MEDS ORDERED: ONDANSETRON HCL 4 MG/2 ML VIAL IV PUSH ONE ×2 (17:45→19:30)
[2018-01-28] MEDS ORDERED: SODIUM CHLORIDE 0.9% FLUSH 10 ML FLUSH IV FLUSH PRN (17:45)
--- NOTE | 2018-01-28 17:47 | PD ---
HPI Chief Complaint: Fall Time Seen by Provider: 17:30 Travel History International Travel<30 days: No Contact w/Intl Traveler<30days: No Traveled to known affect area: No History of Present Illness HPI 62-year-old female presents to the emergency department with complaint of left upper arm pain after she tripped and fell prior to arrival to the ER. She tripped over a bicycle, piece of wood and 2 coolers. She did hit her head on a cooler. She denies loss of consciousness. Reports left-sided neck pain. Denies back pain. Denies other extremity pain. Denies headache, lightheadedness, dizziness. Denies change in mentation, confusion, disorientation, slurred speech, focal deficits or weakness. Denies chest pain, shortness of breath, abdominal pain, vomiting. Has not taken any medications or try any treatments to alleviate her symptoms. Was placed in an arm sling in the ER waiting room for support. Rates pain 10/10. Says the pain is "just there." Worse with movement. Pain is constant. No known relieving factors. Allergies to blue dye, cat dander, Keflex, dog dander. Primary care provider is Dr. Wall. History of hypertension, degenerative disc disease, hypercholesterolemia, cataracts, COPD, PA with stents. Takes aspirin daily. Otherwise, denies anticoagulant therapy. Has no other medical complaints. No other modifying factors or associated signs and symptoms. PFSH Past Medical History Hx Anticoagulant Therapy: Yes (ASA) Arthritis: Yes Asthma: No Blood Disorders: No Anxiety: Yes Depression: No Heart Rhythm Problems: No Cancer: No Cardiac Catheterization: Yes Cardiovascular Problems: Yes High Cholesterol: Yes Chemotherapy: No Chest Pain: Yes (Suffered from chest pain in the past) Congestive Heart Failure: No COPD: Yes Coronary Artery Disease: Yes Diabetes: No Diminished Hearing: No Endocrine: No Gastrointestinal Disorders: Yes GERD: Yes Genitourinary: No Headaches: Yes Hiatal Hernia: No Hypertension: Yes Immune Disorder: No Musculoskeletal: Yes (Previous back and neck injury) Neurologic: Yes Psychiatric: Yes Reproductive: No Respiratory: Yes (Patient diagnosed with pneumonia few weeks ago) Immunizations Current: Yes Migraines: Yes Myocardial Infarction: Yes (2008) Radiation Therapy: No Seizures: No Sleep Apnea: No Thyroid Disease: No Tetanus Vaccination: Unknown Influenza Vaccination: Yes PNEUMOCCOCAL Vaccine (Year): 2007 ?: Not Menopausal: Yes Past Surgical History Abdominal Surgery: Yes (cholecystectomy) Body Medical Devices: cardiac stents x 2. Cardiac Surgery: No Cholecystectomy: Yes Coronary Stent: Yes (X2 07/2008) Ear Surgery: No Endocrine Surgery: No Eye Surgery: No Genitourinary Surgery: No Gynecologic Surgery: No Oral Surgery: No Thoracic Surgery: No Other Surgery: Yes (Cholecystectomy, Bypass surgery, bone fusion) Social History Alcohol Use: No Tobacco Use: Yes (2 PPD) Substance Use: No Allergies-Medications (Allergen,Severity, Reaction): Coded Allergies: blue dye (Unverified Allergy, Severe, Edema, 01/28/18) cat dander (Unverified Allergy, Severe, FACIAL SWELLING, 01/28/18) cephalexin (Unverified Allergy, Severe, HIVES, 01/28/18) dog dander (Unverified Allergy, Severe, FACIAL SWELLING, 01/28/18) Reported Meds & Prescriptions Reported Meds & Active Scripts Active Ibuprofen 800 Mg Tab 800 Mg PO Q6HR PRN Zofran Odt (Ondansetron Odt) 4 Mg Tab 4 Mg SL Q8HR PRN Percocet (Oxycodone-Acetaminophen) 5-325 mg Tab 1 Tab PO Q4H PRN Combivent Respimat Inh (Ipratropium-Albuterol Inh) 20-100 Intermediate/Act Aero 1 Puff INH QID Spiriva Respimat Inh (Tiotropium Inh) 2.5 Mcg/Act Aero 2 Puff INH DAILY 2.5 mcg = 1 inhalation Oxygen tank (Oxygen) 1 Ea Tank Liter MEGHAN.CANULA CONTINUOUS Oxygen Concentrator Portable Gaseous 2 L/min via Nasal Cannula Continuous For 99 months [id number] Nebulizer 1 Mis Mis Ea .XX DIRECTED Doxycycline Hyclate 100 Mg Cap 100 Mg PO BID Prednisone 20 Mg Tab 20 Mg PO DIRECTED 40 MG twice a day x 3 days, then 20 MG daily x 3 days, then 10 MG daily x 3 days [Albuterol-Ipratropium Neb] 1 AMPULE Nebu 1 Ampule NEB Q6HR WHILE AWAKE NEB Levaquin (Levofloxacin) 750 Mg Tablet 750 Mg PO DAILY@1100 Reported Aspirin 325 Mg Tab 325 Mg PO DAILY Breo Ellipta Inh (Fluticasone/Vilanterol) 100-25 Mcg/Act Inh 1 Puff INH DAILY Use daily at the same time. Fenofibrate Micronized 200 Mg Cap 200 Mg PO DAILY Carvedilol 3.125 Mg Tab 3.125 Mg PO BID Diazepam 5 Mg Tab 5 Mg PO TID PRN Review of Systems Except as stated in HPI: all other systems reviewed are Neg Physical Exam Narrative GENERAL: Well-nourished, well-developed female patient, in no acute distress SKIN: Warm and dry. HEAD: Atraumatic. Normocephalic. No facial or scalp abrasions or lacerations noted. No scalp hematomas or swelling noted on palpation. EYES: Pupils equal and round at 3 mm with brisk reaction. No scleral icterus. No injection or drainage. No raccoon eyes. ENT: Mucosa pink and moist. No erythema or exudates. No uvular edema. No uvular , palatal, or tonsillar deviation. Airway patent. Nares without nasal blood. No rhinorrhea. EARS: Bilateral pinnae and external canals appear within normal limits. Bilateral tympanic membranes without erythema, dullness, hemotympanum or perforation. No otorrhea. No madera signs. NECK: Moving freely. Trachea midline. No lymphadenopathy. No midline tenderness on palpation of the cervical spine. Active rotation of the neck greater than 45 left and right. Reproducible tenderness to the left lateral musculature of the neck. No obvious deformities. CHEST: No retractions or use of accessory muscles. CARDIOVASCULAR: Regular rate and rhythm. No murmur appreciated. RESPIRATORY: No accessory muscle use. Clear to auscultation. Breath sounds equal bilaterally. GASTROINTESTINAL: Rounded. MUSCULOSKELETAL: Left upper extremity in arm sling; sensory intact; hand with decreased student services rep strength; 2+ radial pulse. No obvious deformities. No clubbing. No cyanosis. No edema. BACK: No midline point tenderness on palpation of the lumbar or thoracic spine. Reproducible tenderness to the left upper trapezius musculature of the back no obvious deformities. Patient sitting up in bed at 90. Ambulatory with a normal gait. NEUROLOGICAL: Awake and alert. Oriented 3. No obvious cranial nerve deficits. Motor grossly within normal limits. Normal speech. Moves all extremities. 5/5 strength to all extremities. Sensory intact. PSYCHIATRIC: Appropriate mood and affect; insight and judgment normal. Data Data Last Documented VS Vital Signs Date Time Temp Pulse Resp B/P (MAP) Pulse Ox O2 Delivery O2 Flow Rate FiO2 01/28/18 19:10 78 20 196/94 (128) 96 Room Air 01/28/18 15:37 97.8 Orders Orders Humerus (Min 2vws) (01/28/18 ) Morphine Inj (Morphine Inj) (01/28/18 17:45) Ondansetron Inj (Zofran Inj) (01/28/18 17:45) Iv Access Insert/Monitor (01/28/18 17:31) Sodium Chloride 0.9% Flush (Ns Flush) (01/28/18 17:45) Ct Brain W/O Iv Contrast(Rout) (01/28/18 ) Morphine Inj (Morphine Inj) (01/28/18 18:00) Ondansetron Odt (Zofran Odt) (01/28/18 18:00) Vascular Poc Ultrasound (01/28/18 ) Splint Or Brace Apply/Monitor (01/28/18 18:40) Morphine Inj (Morphine Inj) (01/28/18 19:00) Vascular Access Team Consult/P PRN (01/28/18 18:52) Ondansetron Inj (Zofran Inj) (01/28/18 19:30) Humerus (Min 2vws) (01/28/18 20:00) Sling Cradle Arm (01/28/18 ) Ed Discharge Order (01/28/18 20:41) MDM Medical Decision Making Medical Screen Exam Complete: Yes Emergency Medical Condition: Yes Medical Record Reviewed: Yes Differential Diagnosis Fall, humeral fracture, arm contusion, head injury Narrative Course 62-year-old female with left upper arm pain after mechanical trip and fall today. She hit her head and denies loss of consciousness. Left humerus fracture ordered in triage and concludes a displaced fracture of the proximal shaft of the humerus. CT head ordered. Unable to obtain IV access. Morphine 4 mg IM and Zofran ODT ordered. Vascular access for IV access ordered. 1744: Call placed to orthopedic surgeon. 1841: I spoke Dr. Callie Roblero, and he recommended coaptation splint and patient's choice to be admitted for pain control or to be discharged home and follow-up early next week outpatient. He also recommended if the patient does decide to go home to repeat x-rays after coaptation splint placed. This was discussed with the patient and the patient would like to go home. Coaptation splint ordered. 1899: IV access obtained. Morphine 4 mg IV ordered. 1929: Patient complaining of nausea. Zofran IV ordered. 2040: Left humerus x-ray post splinting concludes: Proximal left humeral fracture with mild displacement. No dislocation. Patient provided Dr. Oneill's contact information for follow-up. Instructed patient to call on Wednesday to make an appointment. She verbalized understanding and agreement. Percocet, ibuprofen, Zofran prescribed for home. Instructed patient to follow up with primary care provider. Patient verbalizes understanding and agreement with treatment plan. Patient is medically cleared and stable for discharge. Discussed reasons to return to the emergency department. Patient agrees with treatment plan. The patients vital signs are stable and the patient is stable for outpatient follow-up and treatment. Patient discharged home, stable and in no acute distress. Physician Communication Physician Communication Dr. Oneill's PA Diagnosis Primary Impression: Fall Qualified Codes: W19.XXXA - Unspecified fall, initial encounter Additional Impression: Left humeral fracture Qualified Codes: S42.292A - Other displaced fracture of upper end of left humerus, initial encounter for closed fracture Referrals: Félix Oneill MD Orthopaedic Surgeon Primary Care Physician Patient Instructions: General Instructions, Proximal Humerus Fracture (ED) Additional Instructions: Percocet as prescribed for pain; do not drink alcohol or operate machinery when taking Percocet Tylenol or ibuprofen as directed and as needed to reduce pain Rest, ice, compress, and elevate extremity to decrease pain and inflammation Splint for support; do not remove the splint Arm sling for support Avoid aggravating activity; increase activity as tolerated Avoid moving your arm Follow-up with primary care provider Follow-up with orthopedic surgeon; call on Wednesday to make an appointment ; Dr. Oneill's contact information is provided in your discharge instructions Return to the emergency department immediately with worsening symptoms Med/Other Pt SpecificInfo: Prescription(s) given Scripts Ibuprofen (Ibuprofen) 800 Mg Tab 800 MG PO Q6HR Y for PAIN, #30 TAB 0 Refills Prov: Rocio JaimeP 01/28/18 Ondansetron Odt (Zofran Odt) 4 Mg Tab 4 MG SL Q8HR Y for Nausea/Vomiting, #6 TAB 0 Refills Prov: Rocio Jaime FLOOR COVERING INSTALLER 01/28/18 Oxycodone-Acetaminophen (Percocet) 5-325 mg Tab 1 TAB PO Q4H Y for PAIN, #20 TAB 0 Refills Prov: Rocio Jaime 01/28/18 Disposition: 01 DISCHARGE HOME Condition: Stable Rocio Jaime Jan 28, 2018 17:47
[2018-01-28] MEDS ORDERED: ONDANSETRON ODT 4 MG TAB PO ONE (18:00)
[2018-01-28] MEDS ORDERED: MORPHINE SULFATE 4 MG/ML INJ IM ONE (18:00)
[2018-01-28 19:10] VITALS: BP 196/94; PULSE 78; RESP 20; O2SAT 96
--- NOTE | 2018-01-28 19:30 | RADRPT ---
EXAM DATE/TIME: 01/28/2018 18:57 [facility] COMPARISON: CT BRAIN W/O CONTRAST, January 16, 2017, 23:12. INDICATIONS : Trauma. Fell and hit head. RADIATION DOSE: 59.47 CTDIvol (mGy) MEDICAL HISTORY : Myocardial infarction. Chronic obstructive pulmonary disease. Hypertension. SURGICAL HISTORY : Coronary artery stent. Cholecystectomy. ENCOUNTER: Initial ACUITY: 1 day PAIN SCALE: 5/10 LOCATION: cranial TECHNIQUE: Multiple contiguous axial images were obtained of the head. Using automated exposure control and adj ustment of the mA and/or kV according to patient size, radiation dose was kept as low as reasonably a chievable to obtain optimal diagnostic quality images. DICOM format image data is available electro nically for review and comparison. FINDINGS: CEREBRUM: The ventricles are normal for age. No evidence of midline shift, mass lesion, hemorrhage or acute in farction. No extra-axial fluid collections are seen. POSTERIOR FOSSA: The cerebellum and brainstem are intact. The 4th ventricle is midline. The cerebellopontine angle i s unremarkable. EXTRACRANIAL: The visualized portion of the orbits is intact. SKULL: The calvaria is intact. No evidence of skull fracture. CONCLUSION: 1. No acute findings. Chronic white matter ischemic changes. Iraj Sevilla MD on January 28, 2018 at 19:26 Board Certified Radiologist. This report was verified electronically.
[2018-01-28] MEDS ORDERED: IBUP1TAB7 PO (20:24)
[2018-01-28] MEDS ORDERED: ZOFR4TAB3 SL (20:24)
[2018-01-28] MEDS ORDERED: PERC5TAB12 PO (20:24)
--- NOTE | 2018-01-28 20:39 | RADRPT ---
EXAM DATE/TIME: 01/28/2018 20:11 [facility] COMPARISON: No previous studies available for comparison. INDICATIONS : Post splint of the left humerus. MEDICAL HISTORY : Gastroesophageal reflux disease. Arthritis. Myocardial infarction, Hypercholesterolemia. Hypertension . Coronary artery disease. Anticoagulant therapy. COPD. Anxiety SURGICAL HISTORY : Coronary artery stent.Cholecystectomy. C5-C6 fusion ENCOUNTER: Subsequent ACUITY: 1 day PAIN SCORE: 9/10 LOCATION: Left upper extremity FINDINGS: There is a mildly comminuted and displaced proximal humeral fracture. No dislocation. No other fractu res are identified. CONCLUSION: 1. Proximal left humeral fracture with mild displacement. No dislocation. Iraj Sevilla MD on January 28, 2018 at 20:36 Board Certified Radiologist. This report was verified electronically.
[2018-01-28 21:01] VITALS: BP 167/74
== END 2018-01-28 21:10 | disposition home or self-care (01) ==
LOC: PHED 15:29 → PHEFT 21:10
DX: S42.292A Other displaced fracture of upper end of left humerus, initial encounter for closed fracture (principal); M54.2 Cervicalgia; W01.198A Fall on same level from slipping, tripping and stumbling with subsequent striking against other object, initial encounter; I10 Essential (primary) hypertension; E78.00 Pure hypercholesterolemia, unspecified; I25.10 Atherosclerotic heart disease of native coronary artery without angina pectoris; J44.9 Chronic obstructive pulmonary disease, unspecified; K21.9 Gastro-esophageal reflux disease without esophagitis; F41.9 Anxiety disorder, unspecified; I25.2 Old myocardial infarction; F17.200 Nicotine dependence, unspecified, uncomplicated; Z79.82 Long term (current) use of aspirin; Z87.39 Personal history of other diseases of the musculoskeletal system and connective tissue; Z86.69 Personal history of other diseases of the nervous system and sense organs
CPT/HCPCS: 29105; 70450; 73060; 96372; 96374; 96375; 99285; J2270; J2405